=== PATIENT | male | born 1965 | race Caucasian/White ===

== ENCOUNTER 2019-06-29 09:29 | Emergency (ER) | payer OTHER, SELFPAY ==
[2019-06-29 09:40] VITALS: BP 141/90; PULSE 83; RESP 16; TEMP 36.7; O2SAT 99
--- NOTE | 2019-06-29 10:24 | ED.URI ---
HPI - URI/Sore Throat General Chief Complaint: Upper Respiratory Infection Stated Complaint: Sinus Infection Time Seen by Provider: 06/29/19 10:24 History of Present Illness HPI Narrative: Michelet Cardenas is a 53 yo male with a PMH of diabetes who comes to the urgent care for sinus pressure and congestion. He states that he has had upper respiratory symptoms for 5 days and has been taking Mucinex which is caused his blood pressure to be increased. His blood sugar is also been elevated over the last few days. States his temperature was as high as 102 but that broke on Tuesday but has not been unable to manage the sinus pressure states is his ears ringing at times Related Data Home Medications Medication Instructions Recorded Confirmed Mucinex 06/29/19 insulin glargine [Basaglar KwikPen unit SUBCUT 06/29/19 U-100 Insulin] metformin mg PO 06/29/19 sitagliptin [Januvia] mg 06/29/19 Allergies Allergy/AdvReac Type Severity Reaction Status Date / Time No Known Allergies Allergy Mild Verified 04/02/19 10:06 Review of Systems Review of Systems: Narrative: CONSTITUTIONAL: Denies fever, chills, sweats. EYES: Denies visual changes, redness, discharge. ENT: Denies rhinorrhea, has sinus congestion, no sore throat, otalgia. CARDIOVASCULAR: Denies chest pain, palpitations, edema. RESPIRATORY: Denies dyspnea, wheezing, cough GASTROINTESTINAL: Denies abdominal pain, nausea, vomiting, diarrhea. GENITOURINARY: Denies dysuria, hematuria, abnormal discharge SKIN: Denies rash or itching. MUSCULOSKELETAL: Denies acute back pain, joint pain, or myalgia. NEUROLOGIC: Denies numbness, or focal weakness. PSYCHIATRIC: Denies anxiety or depression. [facility] Family History Family History Father Hypertension Cerebrovascular accident Mother Asthma Sibling Patient's brother is in good health Other Carcinoma of colon Diabetes mellitus Family history of cardiovascular disease Family history of malignant neoplasm Family history of malignant neoplasm of skin Social History Social History Smoking status: Former smoker Smoking end date: 05/23/05 Alcohol intake: never Comments At time of signature, I agree with nursing past medical, surgical, social and family history. There is no relevant family history pertinent to the presenting complaint. Exam Narrative: Exam Narrative: GENERAL: This is a well-nourished, well-developed patient, in no apparent distress. HEAD: normocephalic, atraumatic. EYES: PERRL. Sclera clear/white. Vision is grossly intact. EARS: External ears normal, auditory canals clear and without drainage, TMs normal without perforation. Hearing grossly intact. NOSE: External nose normal with no obvious nasal discharge, nares without redness, no rhinorrhea. Tender maxillary sinuses THROAT: Mucous membranes moist, posterior pharynx erythema. NECK: Neck supple, non-tender without lymphadenopathy, masses or thyromegaly. CARDIOVASCULAR: Regular rate and rhythm without murmurs, gallops, or rubs. RESPIRATORY: Clear to auscultation. Breath sounds equal bilaterally. No wheezes, rales, or rhonchi. GASTROINTESTINAL: Abdomen soft, non-tender, nondistended. Bowel sounds are active. No hepato-splenomegaly, or palpable masses. No guarding. SKIN: warm, intact with no suspicious lesions or rash, good texture and turgor. NEURO: awake, alert, and oriented to person, place and time. There were no obvious focal neurologic abnormalities. Steady gait EXTREMITIES: Normal range of motion. BACK: Nontender without deformity or crepitance. No flank tenderness. Course Course Emergency Course: Had discussion with patient regarding medication and blood sugar interactions blood sugar currently running about 175; aware the Mucinex he is taking has also increased his blood pressure. Follows up with PCP regularly Agreed to start on A
== END 2019-06-29 10:43 | disposition home or self-care (01) ==
PROVIDERS: Emergency Provider Nurse Practitioner; PCP Family Medicine
DX: J01.10 Acute frontal sinusitis, unspecified (principal); Z87.891 Personal history of nicotine dependence
CPT/HCPCS: 99213; G0463

== ENCOUNTER 2020-12-10 10:01 | Outpatient (CLI) | payer OTHER, SELFPAY ==
--- NOTE | 2020-12-10 11:00 | NEURO_ITS ---
Impression: # Complains of right 4th and 5th finger numbness. # Right ulnar neuropathy across the elbow. # No Carpal Tunnel Syndrome. # Normal needle/EMG exam. Nerve Conduction Studies Anti Sensory Summary Table Stim Site NR Peak (ms) P-T Amp (?V) Site1 Site2 Delta-P (ms) Dist (cm) Kavin (m/s) Right Median Anti Sensory (2-3nd Digit) Wrist 3.2 52.8 Wrist 2-3nd Digit 3.2 14.0 44 Wrist 3.1 36.5 Wrist 2-3nd Digit 3.2 14.0 44 Right Radial Anti Sensory (Base 1st Digit) Wrist 2.4 16.7 Wrist Base 1st Digit 2.4 0.0 Right Ulnar Anti Sensory (5th Digit) Wrist 3.1 63.1 Wrist 5th Digit 3.1 14.0 45 Motor Summary Table Stim Site NR Onset (ms) O-P Amp (mV) Site1 Site2 Delta-0 (ms) Dist (cm) Kavin (m/s) Right Median Motor (Abd Poll Brev) Wrist 3.5 2.9 Elbow Wrist 5.2 28.0 54 Elbow 8.7 2.7 Right Ulnar Motor (Abd Dig Minimi) Wrist 3.7 7.3 A Elbow Wrist 5.7 28.0 49 A Elbow 9.4 5.7 B Elbow Wrist 3.6 19.0 53 B Elbow 7.3 2.7 F Wave Studies NR F-Lat (ms) L-R F-Lat (ms) Right Median (Mrkrs) (Abd Poll Brev) 29.28 Right Ulnar (Mrkrs) (Abd Dig Min) 30.64 EMG Side Muscle Nerve Root Ins Act Fibs Amp Dur Recrt Comment Right 1stDorInt Ulnar C8-T1 Nml Nml Nml Nml Nml Right Ext Indicis Radial (Post Int) C7-8 Nml Nml Nml Nml Nml Right Ext Digitorum Radial (Post Int) C7-8 Nml Nml Nml Nml Nml Right BrachioRad Radial C5-6 Nml Nml Nml Nml Nml Right PronatorTeres Median C6-7 Nml Nml Nml Nml Nml Right Abd Poll Brev Median C8-T1 Nml Nml Nml Nml Nml Right ABD Dig Min Ulnar C8-T1 Nml Nml Nml Nml Nml MTDD
== END 2020-12-10 10:02 | disposition home or self-care (01) ==
PROVIDERS: PCP Family Medicine; Visit Provider Family Medicine
DX: R20.2 Paresthesia of skin (principal); M79.641 Pain in right hand; G56.21 Lesion of ulnar nerve, right upper limb
CPT/HCPCS: 95886; 95909

== ENCOUNTER → 2021-01-03 10:02 | Outpatient (CLI) | payer OTHER, SELFPAY ==
--- NOTE | ~2021-01-03 | US_ITS ---
US scrotum doppler INDICATION: No hypogonadism. Low testosterone. TECHNIQUE: Testicular sonogram utilizing grayscale and color Doppler FINDINGS: There are multiple small cysts of the left testicle. There are a few testicular microcalcif ications. There are left epididymal cysts measuring up to 11 mm. Right epididymis within normal limit s. No evidence for hydrocele. No varicocele. No focal lesions are seen. The right testes measures 4.5 x 2.1 x 2.9 cm centimeters, and the left testis measures 4.3 x 1.9 x 2.4 cm cm. There is normal vasc ular flow to both testes. Left testicle appears slightly higher than the right testicle. Correlate cl inically. The right and left epididymides appear normal. There is no varicocele or hydrocele. IMPRESSION: 1. Left testicular and epididymal cysts. Reviewed, dictated and finalized at location A.
== END ==
PROVIDERS: Visit Provider Internal Medicine Endocrinology, Diabetes & Metabolism
DX: R79.89 Other specified abnormal findings of blood chemistry (principal); N50.3 Cyst of epididymis; N44.2 Benign cyst of testis
CPT/HCPCS: 76870; 93976

== ENCOUNTER 2021-04-21 15:49 | Outpatient (CLI) | payer OTHER, SELFPAY ==
--- NOTE | ~2021-04-21 | MR_ITS ---
EXAMINATION: MR cervical spine wo con EXAM DATE: 04/21/2021 16:35 INDICATION: M54.12 - Radiculopathy, cervical region. TECHNIQUE: Multi-sequential, multiplanar MR images of the cervical spine were obtained without contra st. Axial T2, axial T2 MERGE sequence. Sagittal T1, T2, T2 fat saturation images also obtained. Th ere is no prior study for comparison. FINDINGS: Moderate to severe disc disease at C5-6. The vertebral body and disc heights are otherwise well maintained. The vertebral bodies are aligned in the AP dimension. The spinal cord signal intens ity and intrinsic morphology is normal. Cervicomedullary junction is normal in appearance. There are no suspicious marrow signal abnormalities. Paraspinal soft tissue is unremarkable. Level by level evaluation: C2-C3: Disc does not extend beyond the endplate margin. Uncovertebral joint arthropathy: Mild left. Facet joint arthropathy: Mild bilateral. Neural foraminal stenosis: No stenosis. Central canal stenosis: No stenosis. C3-C4: There is a minimal diffuse disc bulge. Uncovertebral joint arthropathy: Mild bilateral. Facet joint arthropathy: Mild bilateral. Neural foraminal stenosis: No stenosis. Central canal stenosis: No stenosis. C4-C5: There is a minimal diffuse disc bulge. Uncovertebral joint arthropathy: Mild bilateral. Facet joint arthropathy: Mild to moderate bilateral. Neural foraminal stenosis: Minimal left. Central canal stenosis: No stenosis. C5-C6: [id number] Uncovertebral joint arthropathy: Mild to moderate bilateral. Facet joint arthropathy: Mild to moderate bilateral. Neural foraminal stenosis: Mild to moderate left, mild right. Central canal stenosis: Mild to moderate. Central canal measures 7 mm in mid sagittal AP diameter . C6-C7: There is a mild diffuse disc bulge. Uncovertebral joint arthropathy: Moderate right, mild left. Facet joint arthropathy: Mild to moderate bilateral. Neural foraminal stenosis: Mild to moderate right. Central canal stenosis: Mild. C7-T1: Disc does not extend beyond the endplate margin. Uncovertebral joint arthropathy: Mild bilateral. Facet joint arthropathy: Mild to moderate bilateral. Neural foraminal stenosis: No stenosis. Central canal stenosis: No stenosis. IMPRESSION: 1. Advanced C5-6 disc disease, mild to moderate left neural foraminal stenosis. 2. Less spondylosis other levels. Reviewed, dictated and finalized at location A. ENT FLOW COORDINATOR IMPRESSION: 1. Advanced C5-6 disc disease, mild to moderate left neural foraminal stenosis . 2. Less spondylosis other levels.
== END 2021-04-21 15:50 | disposition home or self-care (01) ==
PROVIDERS: PCP Family Medicine; Visit Provider Orthopaedic Surgery
DX: M47.813 Spondylosis without myelopathy or radiculopathy, cervicothoracic region (principal); M48.03 Spinal stenosis, cervicothoracic region
CPT/HCPCS: 72141

== ENCOUNTER 2021-07-30 12:05 | Outpatient (CLI) | payer OTHER, SELFPAY ==
--- NOTE | 2021-07-30 15:24 | ECG_ITS ---
Measurements Intervals [place] Rate: 95 P: 26 [place]: 143 QRS: 22 QRSD: 81 T: 30 QT: 321 QTc: 404 Interpretive Statements SINUS RHYTHM BASELINE ARTIFACT OTHERWISE NORMAL ECG NO PREVIOUS ECG AVAILABLE FOR COMPARISON Electronically Signed On 07-30-2021 16:20:29 MARINE STEAM FITTER HELPER by Terry Lunsford M.D.
[2021-07-30 15:48] LABS: Anion Gap 8 mmol/L (8-16); Blood Urea Nitrogen 18 mg/dL (9-20); Calcium 9.3 mg/dL (8.4-10.2); Carbon Dioxide 31 mmol/L (22-30); Chloride 100 mmol/L (98-107); Estimated Glomerular Filt Rate > 60; Glucose 146 mg/dL (65-110); Potassium 4.2 mmol/L (3.4-5.0); Sodium 139 mmol/L (137-145)
== END 2021-07-30 12:06 | disposition home or self-care (01) ==
PROVIDERS: Anesthesiology; PCP Family Medicine; Visit Provider Orthopaedic Surgery
DX: Z01.818 Encounter for other preprocedural examination (principal); E11.9 Type 2 diabetes mellitus without complications; I10 Essential (primary) hypertension
CPT/HCPCS: 36415; 80048; 93005

== ENCOUNTER → 2021-08-01 00:17 | Outpatient (CLI) | payer OTHER, SELFPAY ==
[2021-08-01 13:14] LABS: SARS-CoV-2 RNA PCR Negative
== END ==
PROVIDERS: PCP Family Medicine; Visit Provider Orthopaedic Surgery
DX: Z01.812 Encounter for preprocedural laboratory examination (principal); Z20.822 Contact with and (suspected) exposure to COVID-19
CPT/HCPCS: C9803; U0003; U0005

== ENCOUNTER 2021-08-04 00:59 | Day surgery (SDC) | payer OTHER, SELFPAY ==
[2021-07-27 15:22] VITALS: BMI 33.0
--- NOTE | 2021-07-27 15:26 | PC.NURSE ---
Report to the Outpatient Waiting Room, entrance under the green pavilion located off [facility], at time 11:30 on date 08/04/21. OR Time: 13:30. - You and your visitor will be asked a series of questions to screen for COVID 19 for your protection. - A mask is required within the hospital. Preoperative COVID Testing Requirements: No COVID Test needed if: (proof is required; if not received patient will have Rapid Test prior to entry) - Patient has received COVID Vaccine at least 14 days prior to procedure date or - Patient has positive COVID test result within last 90 days of surgery date. COVID Test needed if above criteria is not met If not COVID vaccinated a COVID test must be conducted within 72 hours of surgery and patient is asked to isolate self from time of testing until procedure. You will go to the [employer] [facility] Testing Site for your COVID testing. The [employer] [facility] is located at the corner of [address] [facility]. You will only be called if COVID results are positive and your surgeon may reschedule your elective surgery date. Patients may have clear liquids (water, carbonated beverages, clear teas, apple juice) until 3 hours prior to surgery with a maximum of 20 ounces. - No food from midnight until time of surgery - Infants may have breast milk until 4 hours before surgery, infant formula 6 hours prior to surgery. - Children will be allowed to drink immediately following surgery. If applicable, please bring a bottle or sippy cup to assist with drinking. Juice, water, soda, and popsicles are readily available. For infants on formula, please bring formula the day of surgery. Pacifiers are allowed. Take the following medications with a SIP of water the morning of surgery: No home meds Medications to discontinue per physician _vitamins or supplements 3 days prior (08/01/21). Date to take last dose Please no make-up, nail grenadian, hairspray, perfume, deodorant, or body powder the day of surgery. No jewelry (including any body piercings) or valuables the day of surgery, leave them at home. Please take a shower or bath the night before, or the morning of, surgery with an antibacterial soap. Wear comfortable, loose fitting clothing. Children are encouraged to wear pajamas. - Jewelry must be removed prior to entering the operating room. Rings and piercings that are not removed may be cut off. - The hospital will not accept responsibility for valuables. - Please leave all valuables, including medications, at home the day of surgery. If you are going home after surgery, a licensed putaway driver must drive you home. - NO public transportation without another adult. - We recommend that an adult stay with you for 24 hours following discharge. - We also recommend that you do not drive, make important decision, drink alcoholic beverages, or take any drugs that were not prescribed by your health care provider for at least 24 hours after your discharge time. For Pediatric surgeries, we recommend two adults accompany the child home (only one inside the building at this time). One visitor will be allowed to accompany the patient into the hospital. Patients visitor will be instructed to remain with patient at all times or leave the building. We will allow the visitor to come back to the postoperative area when patient is ready. Follow any additional instructions given to you from your surgeon. Telephone instructions given to patient and asked if any additional questions and then verbalized understanding. Patient advised to call surgeon office or pre surgery nurse liaison [phone] if any additional questions.
--- NOTE | 2021-08-04 07:28 | WPDHPUPDATE1 ---
History and Physical Update Update Date/Time: 08/04/21 07:28 History and Physical has been reviewed, including an updated exam of the patient. There are NO changes in the patient's condition. Risks, benefits, and alternatives have been discussed and questions answered. Patient agrees to proceed with procedure.
--- NOTE | 2021-08-04 09:56 | WPDANESEPPF ---
Anes - Initial Pre Proc Eval Procedure: Operation Date: 08/04/21 13:30 Proposed Procedures p Right Open Carpal and Cubital Tunnel Release - Kaushal Montes MD Date/Time: 08/04/21 09:56 Surgeon: Kaushal Montes MD Pre Op Diagnosis: right carpal and cubital tunnel syndrome Patient Data Age: 55 Gender: M Height: 1.78 m Weight: 104.33 kg Allergies Allergy/AdvReac Type Severity Reaction Status Date / Time No Known Allergies Allergy Mild Verified 08/04/21 11:46 Home Medications Medication Instructions Recorded Confirmed Type dapagliflozin 10 mg tablet 10 mg PO DAILY #90 tablet 07/11/19 07/27/21 Rx atorvastatin 20 mg tablet 20 mg PO DAILY 03/18/20 07/27/21 History glimepiride 2 mg tablet 2 mg PO QAM 03/18/20 07/27/21 History insulin degludec 100 unit/mL (3 48 unit SUBCUT DAILY ml 03/18/20 07/27/21 History mL) subcutaneous pen lisinopril 20 mg tablet 20 mg PO DAILY 03/18/20 07/27/21 History testosterone enanthate 75 mg/0.5 75 mg SUBCUT WEEKLY 03/16/21 07/27/21 History mL subcutaneous auto-injector metformin 500 mg tablet,extended See Rx Instructions .ROUTE 03/30/21 07/27/21 Rx release 24 hr .COMPLEX #360 tablet pen needle, diabetic 32 gauge x #100 each 04/20/21 07/27/21 Rx /32 dulaglutide 1.5 mg SUBCUT WEEKLY 07/27/21 08/04/21 History Patient hx anesthesia problems: none Family hx anesthesia problems: none Results Review: All pre-operative results and documents have been reviewed as part of the pre-operative evaluation. [facility] Past Medical History Medical History (Updated 08/04/21 @ 09:56 by Gary Regan DO) Carpal tunnel syndrome, right Diabetes HLD (hyperlipidemia) HTN (hypertension) Surgical History Surgical History History of removal of cyst (~1990) Family History Family History Father Hypertension Cerebrovascular accident Mother Asthma Sibling Patient's brother is in good health Other Carcinoma of colon Diabetes mellitus Family history of cardiovascular disease Family history of malignant neoplasm Family history of malignant neoplasm of skin Social History Social History Smoking packs per day: 1.5 Smoking cigarettes per day: 30.0 Years smoked: 20 Smoking pack-years: 30.00 Smoking status: Former smoker Tobacco type: cigarettes Second hand tobacco smoke exposure: Yes Smoking end date: 04/09/06 Alcohol intake: never Substance use: never Substance use type: does not use Living arrangements: with family Gender identity (if verbalized by the patient): Male Spiritual care concerns: No Anes - Eval Final PreProcedure Day of Procedure 08/04/21 09:56 Patient weight: obese Heart: regular rate and rhythm Lungs: clear to auscultation and normal air movement Airway: Mallampati scale class II Neurological: alert and oriented Last oral intake: >/= 8 hours ASA classification: III Emergent: no Anesthetic plan: proceed Anesthesia type and monitoring: general LMA and standard monitoring Results Review: All pre-operative results and documents have been reviewed as part of the pre-operative evaluation. Informed Consent: The patient's anesthetic plan and its attendant risks and benefits were discussed with the patient/family/POA. Questions were solicited and answers provided to the satisfaction of the patient/family/POA.
[2021-08-04] MEDS: LACTATED RINGERS 1,000 ML 30 ML IV CONT ×2 (12:00→15:46)
[2021-08-04 12:04] LABS: Glucose Point of Care 105 mg/dl (65-105)
[2021-08-04] MEDS: ACETAMINOPHEN 500 MG TABLET 1000 MG PO (12:20)
[2021-08-04 12:23] VITALS: BP 128/81; PULSE 102; RESP 16; TEMP 36.7; O2SAT 99
[2021-08-04] MEDS: KETOROLAC 15 MG/ML VIAL (*BKC) IV PUSH (12:45)
[2021-08-04] MEDS: ceFAZolin SODIUM 1 GM VIAL 2 GM IV PUSH (14:41)
[2021-08-04] MEDS: BUPIVACAINE/EPINEPHRINE 0.25% 50 ML VIAL 20 ML INFILTRATE (14:49)
[2021-08-04 15:46] VITALS: BP 127/76; PULSE 93; RESP 14; TEMP 36.2; O2SAT 96
[2021-08-04 16:00] VITALS: BP 124/69; PULSE 90; RESP 12; O2SAT 92
[2021-08-04 16:00] LABS: Glucose Point of Care 52 mg/dl (65-105)
--- NOTE | 2021-08-04 16:05 | SUR.PHASEI ---
1555 Called and discussed low blood sugar with Dr Tiwari. 8 oz apple juice given to patient which he drank easily.
[2021-08-04 16:18] VITALS: BP 112/54; PULSE 89; RESP 14; O2SAT 92
[2021-08-04 16:30] VITALS: BP 140/75; PULSE 88
--- NOTE | 2021-08-04 16:51 | SUR.PHASEII ---
RN tried to recheck patient's blood sugar after 8oz of apple juice consumed but patient refused. He said he felt much better and like it was rising.
[2021-08-04 17:00] VITALS: BP 128/70; PULSE 86
--- NOTE | 2021-08-04 17:18 | SUR.PHASEII ---
Patient requested no pain medicine per KAYE Zamarripa.
--- NOTE | 2021-08-04 17:35 | P.OP_ITS ---
Procedure Note - Detailed Date of Procedure 08/04/21 Pre-op Diagnosis Right carpal and cubital tunnel syndrome Post-op Diagnosis Same Procedure Performed Right 1. Carpal tunnel release 2. Cubital tunnel decompression Surgeon Kaushal Montes MD Occupational Therapy Supervisor Karlie Espitia PA-C Anesthesia General Description of Procedure Operative details. After sedation was administer, the hand was prepped and draped in the usual sterile fashion. The proposed incision was marked using typical anatomic landmarks. 4ML 0.5% Marcaine with epinephrine was injected along the incision line and at the distal forearm. The limb was exsanguinated and the tourniquet inflated to 250 millimeters of mercury. A longitudinal incision was taken sharply. Dissection was brought down to the transverse carpal ligament. Under direct vision the ligament was incised sharply. The proximal release was carried out with dissection scissors. The contents of the carpal canal were protected with a [place] elevator. The transverse carpal ligament was confirmed to be widely patent. Attention was turned to the elbow. A longitudinal incision was created posterior to the medial epicondyle. Careful dissection was brought down to the ulnar nerve. It was identified proximally and dissected to the cubital tunnel retinaculum. Careful dissection released the cubital tunnel retinaculum. The dissection was carried out to the flexor carpi the palmaris. The 1st motor branch was carefully identified and protected. Attention was turned proximally, and the nerve was released proximal to the intermuscular septum. The arm was flexed and the nerve was assessed. The nerve was stable. The course of the nerve showed no compression or instability. The tourniquet was released to assure that there was no significant bleeding. Meticulous hemostasis was maintained. The subcutaneous tissues were closed with interrupted 3-0 Monocryl suture followed by running 4-0 Monocryl suture and Steri-Strips. A sterile dressing was applied with a soft splint at the wrist and a hard splint at the elbow. The patient was extubated and brought to the recovery room in stable condition. Estimated Blood Loss -5.0 Pathology None sent Complications No immediate complications Condition Stable Disposition PACU
== END 2021-08-04 17:10 | disposition home or self-care (01) ==
PROVIDERS: PCP Family Medicine; Visit Provider Orthopaedic Surgery
PROC: (CPT 64721; principal; 2021-08-04 13:30)
DX: G56.01 Carpal tunnel syndrome, right upper limb (principal); G56.21 Lesion of ulnar nerve, right upper limb; E11.9 Type 2 diabetes mellitus without complications; I10 Essential (primary) hypertension; E78.5 Hyperlipidemia, unspecified; Z87.891 Personal history of nicotine dependence; E66.9 Obesity, unspecified; Z68.33 Body mass index [BMI] 33.0-33.9, adult; Z79.84 Long term (current) use of oral hypoglycemic drugs; Z79.4 Long term (current) use of insulin; Z79.899 Other long term (current) drug therapy
CPT/HCPCS: 64721; 64718; 82948; A9270; J0690; J1100; J1885; J2250; J2405; J2704; J3010; J7120

== ENCOUNTER 2025-03-07 12:15 | Outpatient (CLI) | payer OTHER, SELFPAY ==
--- NOTE | ~2025-03-07 | US_ITS ---
EXAMINATION: US scrotum doppler DATE: 03/07/2025 13:30 INDICATION: Other specified disorders of female genital organs. TECHNIQUE: Testicular sonogram utilizing grayscale and Doppler COMPARISON: None. FINDINGS: The right testis measures 4.5 x 2.5 x 1.8 cm. The left testis measures 3.8 x 2.7 x 2.0 cm. Normal grayscale appearance to the right testis. There is asymmetric relative enlargement of the cephalad aspect of the left testis which contains an approximately 2.1 x 1.7 x 1.6 cm masslike region with heterogeneous central predominant decreased echogenicity but without clearly defined margins the region from the remainder of the testis. There is increased vascular flow within this region of the testis relative to the remainder of the left testis and the contralateral right testis. There are bilateral anechoic epididymal cysts measuring up to 3 to 4 mm on the right and 13 mm and 7 mm on the left. There is an approximately 13 x 8 mm abdomen 9 x 6 mm masslike regions at the tail of the left epididymis which are in relatively close proximity to the somewhat elongated and thinned inferior pole of the left testis which demonstrates similar echogenicity and echotexture. Mild bilateral and varicocele s with vessels measuring up to 3 mm on both the left and right. No hydrocele. IMPRESSION: 1. Abnormal appearance and morphology of the left testis with ill-defined masslike region with mild increased vascular flow at the upper pole of the testis with elongated relatively thinned appearance to the inferior left testis which appears chronic. Differential includes focal orchitis or malignancy. If focal orchitis is suspected clinically would recommend follow-up ultrasound to document resolution. 2. Couple small nodular regions at the tail of the left epididymis which demonstrates similar echogenicity and echotexture as the left testis with which could be due to focal epididymitis or neoplasm. Given the irregular morphology with the elongated narrowed appearance to the lower pole the left testis and is similar echogenicity and echotexture, this could also represent displaced testicular tissue as sequela of chronic trauma. Correlate with clinical history. 3. Mild bilateral varicoceles. Reviewed, dictated and finalized at location A. IMPRESSION: 1. Abnormal appearance and morphology of the left testis with ill-defined mass like region with mild increased vascular flow at the upper pole of the testis w ith elongated relatively thinned appearance to the inferior left testis which a ppears chronic. Differential includes focal orchitis or malignancy. If focal or chitis is suspected clinically would recommend follow-up ultrasound to document resolution. 2. Couple small nodular regions at the tail of the left epididymis which demons trates similar echogenicity and echotexture as the left testis with which could be due to focal epididymitis or neoplasm. Given the irregular morphology with the elongated narrowed appearance to the lower pole the left testis and is destiny lar echogenicity and echotexture, this could also represent displaced testicula r tissue as sequela of chronic trauma. Correlate with clinical history. 3. Mild bilateral varicoceles.
== END 2025-03-07 12:16 | disposition home or self-care (01) ==
PROVIDERS: PCP Family Medicine; Visit Provider Physician Assistant
DX: N50.89 Other specified disorders of the male genital organs (principal)
CPT/HCPCS: 76870; 93976

== ENCOUNTER 2025-03-07 15:47 | Observation (INO) | payer OTHER, SELFPAY ==
--- OUTSIDE RECORDS SUMMARY | 2017-10-03 11:30 | XMS_ITS | Continuity of Care Document ---
Author Organization [facility] Address [address] [place] [address] [address] [place] [address] Phone Care Team Providers Care Armature Winder Repairer Name Role Phone Muehl MPT CMPT, Angel Unavailable Unavailable Procedures Procedure Date Therapeutic Exercise Therapeutic Activities Neuromuscular Re-Ed Manual Therapy Hot or Cold Pack PT Re-evaluation Therapeutic Exercise Therapeutic Activities Neuromuscular Re-Ed Manual Therapy Hot or Cold Pack Therapeutic Exercise Therapeutic Activities Neuromuscular Re-Ed Manual Therapy Hot or Cold Pack Therapeutic Exercise Therapeutic Activities Neuromuscular Re-Ed Manual Therapy Hot or Cold Pack Therapeutic Exercise Therapeutic Activities Neuromuscular Re-Ed Manual Therapy Therapeutic Exercise Therapeutic Activities Neuromuscular Re-Ed Manual Therapy Hot or Cold Pack Therapeutic Exercise Therapeutic Activities Neuromuscular Re-Ed Manual Therapy Hot or Cold Pack Therapeutic Exercise Therapeutic Activities Manual Therapy Hot or Cold Pack Therapeutic Exercise Manual Therapy Hot or Cold Pack Electrical Stimulation PT Evaluation Moderate Complexity Therapeutic Exercise Advance Directives Directive Yes / No Effective Date File Name No Information Encounters Encounter Description Practice Location Reason(s) For Visit Diagnoses Date Provider Providers Copied on Encounter [facility], [place], [place], [id number], tel:[phone] [place] Pain in right shoulderOther specified disorders of bone, shoulderStiffnes s of right shoulder, not elsewhere classifiedMuscle weakness (generalized)Tor ticollis 4-201 8 Muehl Angel. [address] [facility], [facility] [address], [place], [place], [facility], . tel: [phone] [facility] [address], [place], [place], [id number], tel:[phone] [place] Pain in right shoulderOther specified disorders of bone, shoulderStiffnes s of right shoulder, not elsewhere classifiedMuscle weakness (generalized)Tor ticollis 9-201 8 Muehl Angel. [address] [facility], [facility] [address], [place], [place], [facility], . tel: [phone] [facility], [place], [place], [id number], tel:[phone] [place] Pain in right shoulderOther specified disorders of bone, shoulderStiffnes s of right shoulder, not elsewhere classifiedMuscle weakness (generalized)Tor ticollis 7-201 8 Muehl Angel. [address] [facility], [facility], [place], [place], [facility], . tel: [phone] [facility], [place], [place], [id number], tel:[phone] [place] Pain in right shoulderOther specified disorders of bone, shoulderStiffnes s of right shoulder, not elsewhere classifiedMuscle weakness (generalized)Tor ticollis 2-201 8 Muehl Angel. [address] [facility], [address], [place], [place], [facility], . tel: [phone] [facility], [place], [place], [id number], [place] tel:[phone] [place] Pain in right shoulderOther specified disorders of bone, shoulderStiffnes s of right shoulder, not elsewhere classifiedMuscle weakness (generalized)Tor ticollis Apr-3 0-201 8 Muehl Angel. [address] [facility], [address], [place], [address], [place]. tel: [phone] [facility], [place], [place], [id number], [place] tel:[phone] [place] Pain in right shoulderOther specified disorders of bone, shoulderStiffnes s of right shoulder, not elsewhere classifiedMuscle weakness (generalized)Tor ticollis Apr-2 7-201 8 Muehl Angel. [address] [facility], [address], [place], [address], [place]. tel: [phone] [facility] [address], [place], [place], [id number], [place] tel:[phone] [place] Pain in right shoulderOther specified disorders of bone, shoulderStiffnes s of right shoulder, not elsewhere classifiedMuscle weakness (generalized)Tor ticollis Apr-2 5-201 8 Muehl Angel. [address] [facility], [address], [place], [address], [place]. tel: [phone] [facility], [place], [place], [id number], [place] tel:[phone] [place] Pain in right shoulderOther specified disorders of bone, shoulderStiffnes s of right shoulder, not elsewhere classifiedMuscle weakness (generalized)Tor ticollis Apr-2 3-201 8 Muehl Angel. [address] [facility], [address], [place], [address], [place]. tel: [phone] [facility], [place], [place], [id number], [place] tel:[phone] [place] Pain in right shoulderOther specified disorders of bone, shoulderStiffnes s of right shoulder, not elsewhere classifiedMuscle weakness (generalized)Tor ticollis Apr-1 8-201 8 Lucy Ortiz. [address] [facility], [address], [place], [address], [place]. tel:[phone] Referring Provider: Onofre Martin [address] [facility] [address], [place], [address]. tel:[phone] [facility], [address] [facility] [address], [place], [place], [id number], [place] tel:[phone] [place] Pain in right shoulderOther specified disorders of bone, shoulderStiffnes s of right shoulder, not elsewhere classifiedMuscle weakness (generalized)Carlos conroy 8 Lucy Ortiz. [address] [facility], [address], [place], [address], [place]. [phone] Referring Provider: Onofre Martin [address], [place], [address]. tel:[phone] Family History Family Member Type Diagnosis Age At Onset No Information Payers Payer name Insurance type Covered democrat ID Authoriza tion(s) No Information Social History Type Description Quantity Date Captured Comments Sex Male Smoking Status No Information Chief Complaint And Reason For Visit No Information Reason For Referral Reason For Referral No Information History Of Present Illness Encounter Date Complaint History Of Prese nt Illness No Information Functional Status Date Functional Assessmen t No Information Instructions Date Instruction Additional Infor mation No Information Assessments Type Assessment Date No Information Patient Care Teams Name Effective Dates (start - stop) Status Members No Information
[2025-03-07] VITALS (22 sets, daily range): BP systolic 127–157; BP diastolic 67–93; PULSE 80–95; RESP 11–19; TEMP 36.4; O2SAT 94–100
--- NOTE | ~2025-03-07 | CT_ITS ---
CT pelvis w con INDICATION:SCROTAL MASS, please scan thru entire scrotum . COMPARISON: None. TECHNIQUE: Axial images of the pelvis were obtained following oral Gastrografin as well as infusion of 100 mL Isovue 300. FINDINGS: There are enhancing left testicular lesion measuring up to 12 mm. The bladder and rectum are normal. No free intraperitoneal fluid or air is evident. There is no significant retroperitoneal lymphadenopathy. The aorta, visceral vessels and renal arteries demonstrate normal caliber and patency. The lower thoracic and lumbar vertebrae are in normal alignment. IMPRESSION: 12 mm enhancing left testicular lesion. There is a 2.4 x 1.6 cm walled off fluid collection in at the base of the scrotum. All CT scans at this facility are performed using low dose modulation techniques as appropriate to perform exam including the following: automated exposure control; use of iterative reconstruction technique; adjustment of the mA and/or kV according to patient size (this includes techniques or standardized protocols for targeted exams where dose is matched to indication/reason for exam). Reviewed, dictated and finalized at location S. IMPRESSION: 12 mm enhancing left testicular lesion. There is a 2.4 x 1.6 cm walled off flui d collection in at the base of the scrotum. All CT scans at this facility are performed using low dose modulation techniqu es as appropriate to perform exam including the following: automated exposure c ontrol; use of iterative reconstruction technique; adjustment of the mA and/or kV according to patient size (this includes techniques or standardized protocol s for targeted exams where dose is matched to indication/reason for exam).
--- NOTE | 2025-03-07 16:58 | ED_ITS ---
HPI - Male Genitourinary General Chief complaint: Skin/Abscess/Foreign Body <Lorelei Sood PA-C - Last Filed: 03/08/25 17:16> Stated complaint: PCP called & told him to come for scrotal cyst? <Lorelei Sood PA-C - Last Filed: 03/08/25 17:16> Time Seen by Provider: 03/07/25 16:58 <Lorelei Sood PA-C - Last Filed: 03/08/25 17:16> Focused HPI: This is a 59 year old male that presents to the ER for swelling around his perineum. Reports the has been ongoing for a week. Reports redness. Denies fevers, drainage. GENERAL: Well-appearing, well-nourished, and in no acute distress. HEAD: Normocephalic, atraumatic. CHEST: Clear to auscultation. ?No respiratory distress. HEART: Regular rate and rhythm.? NEURO: ?Alert and oriented x3. Patient screened in triage and initial orders placed.? ?Additional care and disposition to be based upon?diagnostic testing and treatment. <Lorelei Sood PA-C - Last Filed: 03/08/25 17:16> History of Present Illness HPI Narrative: Agree with the HPI above. No systemic symptoms besides pain. Denies any fever, chills, weight loss, weight gain. His well-controlled insulin-dependent diabetic type 2. <Vitaliy Mann MD - Last Filed: 03/08/25 06:27> Related Data Allergies/Adverse reactions: Allergies Allergy/AdvReac Type Severity Reaction Status Date / Time empagliflozin (From AdvReac Intermediate [place] Verified 03/08/25 10:12 Jardiance) <Lorelei Sood PA-C - Last Filed: 03/08/25 17:16> Review of Systems 2 Review of Systems: As reviewed above in HPI <Vitaliy Mann MD - Last Filed: 03/08/25 06:27> PMFSH Past Medical History Medical History: Medical History Erectile dysfunction Carpal tunnel syndrome, right HLD (hyperlipidemia) HTN (hypertension) Diabetes <Lorelei Sood PA-C - Last Filed: 03/08/25 17:16> Surgical History Surgical History: Surgical History History of decompression of ulnar nerve (~08/04/21) History of carpal tunnel release (~08/04/21) Right CTR History of removal of cyst (~1990) <Lorelei Sood PA-C - Last Filed: 03/08/25 17:16> Family History Family History: Family History Father Hypertension Cerebrovascular accident Mother Asthma Sibling Patient's brother is in good health Other Carcinoma of colon Diabetes mellitus Family history of cardiovascular disease Family history of malignant neoplasm Family history of malignant neoplasm of skin <FRANDY Bueno Last Filed: 03/08/25 17:16> Social History Social History: Social History (Updated 03/08/25 @ 08:49 by Francine Huitron APRN) Social History: He is and lives with his . He did serve in the and was based in [facility] and 1 time. 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 He plans to retire in 8 years. He has 3 children. His is his durable [id number] for healthcare. Code status: Full code Smoking packs per day: 1.5 Smoking cigarettes per day: 30.0 Years smoked: 20 Smoking pack-years: 30.00 Smoking status: Former smoker Tobacco type: cigarettes Second hand tobacco smoke exposure: Yes Smoking end date: 04/09/06 Alcohol intake: former Substance use: never Substance use type: does not use Lack of Transportation: No Lack of Food: Never True Current Housing: I Have Housing Concerned About Future Housing: No Difficulty Paying Gas/Electric Bills: No Difficulty Paying for Meds: No Currently Unemployed: No Education: High School Diploma/GED Difficulty w/ Childcare or Family Care: No Living arrangements: with family Occupation/Education: occupation Gender identity (if verbalized by the patient): Male Spiritual care concerns: No <Lorelei Sood PA-C - Last Filed: 03/08/25 17:16> Exam 2 Narrative: GENERAL: [Well-appearing, well-nourished, and in no acute distress.] HEAD: [Normocephalic, atraumatic.] EYES: [PERRLA and EOMI.] ENT: Nares clear, no rhinorrhea or epistaxis. Mucous membranes moist. NECK: Supple. CHEST: Symmetric chest rise, no respiratory distress HEART: [Regular rate and rhythm]. No murmur heard. [Normal peripheral pulses.] ABDOMEN: [Soft, nondistended], [nontender], [No rigidity or guarding] : Inferior portion of the right selwyn-scrotum near midline [place] has a very indurated 2.5 cm x 2.5 cm circular structure that appears well-circumscribed, warmth and erythema surrounding but no tracking redness crepitus or significant fluctuance. Exquisitely tender to palpation. Testicle itself appears normal morphology without any tenderness in the testicle or epididymis. No inguinal hernias. Penis unremarkable. EXTREMITIES: Normal range of motion. [No edema.] SKIN: Warm, dry, no rash. NEURO: [No focal deficits]. Alert and oriented [x3.] PSYCH: [Normal mood and affect.] <Vitaliy Mann MD - Last Filed: 03/08/25 06:27> Course Vital Signs Vital signs: Vital Signs Temperature 97.6 F 03/07/25 15:55 Pulse Rate 95 03/07/25 15:55 Respiratory Rate 16 03/07/25 15:55 Blood Pressure 157/93 H 03/07/25 15:55 Pulse Oximetry 99 03/07/25 15:55 Oxygen Delivery Room Air 03/07/25 15:55 Temperature 96.1 F L 03/08/25 06:00 Pulse Rate 76 03/08/25 06:00 Respiratory Rate 18 03/08/25 06:00 Blood Pressure 136/83 03/08/25 06:00 Pulse Oximetry 100 03/08/25 06:00 Oxygen Delivery Room Air 03/08/25 00:45 <Lorelei Sood PA-C - Last Filed: 03/08/25 17:16> Vital Signs Temperature 97.6 F 03/07/25 15:55 Pulse Rate 95 03/07/25 15:55 Respiratory Rate 16 03/07/25 15:55 Blood Pressure 157/93 H 03/07/25 15:55 Pulse Oximetry 99 03/07/25 15:55 Oxygen Delivery Room Air 03/07/25 15:55 Temperature 96.1 F L 03/08/25 06:00 Pulse Rate 76 03/08/25 06:00 Respiratory Rate 18 03/08/25 06:00 Blood Pressure 136/83 03/08/25 06:00 Pulse Oximetry 100 03/08/25 06:00 Oxygen Delivery Room Air 03/08/25 00:45 <Vitaliy Mann MD - Last Filed: 03/08/25 06:27> MDM - Male Genitourinary MDM Narrative Medical decision making narrative: 59-year-old male with history of type 2 insulin-dependent diabetes presenting to the emergency department for evaluation of his scrotal mass. He went to his primary care provider's office today and had a scrotal ultrasound done and was sent home with antibiotics for suspected infection. Ultrasound report was read by radiologist and patient was called to the emergency department to get further evaluation with potential urology consult. Ultrasound did not comment on the masslike structure in his scrotum however and patient was informed of his findings that were concerning for potential malignancy versus orchitis. Patient has no urinary complaints or systemic symptoms. No weight loss or B symptoms. Normal vital signs and is afebrile. His examination reveals inferior portion of the right selwyn-scrotum near midline [place] has a very indurated 2.5 cm x 2.5 cm circular structure that appears well-circumscribed, warmth and erythema surrounding but no tracking redness crepitus or significant fluctuance. Exquisitely tender to palpation. Testicle itself appears normal morphology without any tenderness in the testicle or epididymis. No inguinal hernias. Penis unremarkable. Suspect abscess formation to his scrotum. Laboratory studies obtained a CT scan of the pelvis with contrast obtained for further evaluation and compared to the ultrasound report from earlier today. Patient not in any acute pain at this time and declines any additional analgesia. Workup shows no leukocytosis or anemia. CT scan shows abscess in the scrotal wall as well as testicular findings correlate on ultrasound. Spoke to Dr. Nelson from Urology was arrived to the emergency department perform a bedside incision and drainage rather than operative intervention in the OR if patient tolerates this. Patient started on broad-spectrum antibiotics including vancomycin and Zosyn given his insulin-dependent diabetes. Recommended admission to the hospitalist service for observation and additional antibiotics. Patient comfortable with the plan and urology has performed for procedure at bedside. Spoke to the hospitalist mid-level provider who accepted the patient to the hospital at this time. <Lorelei Sood PA-C - Last Filed: 03/08/25 17:16> 59-year-old male with history of type 2 insulin-dependent diabetes presenting to the emergency department for evaluation of his scrotal mass. He went to his primary care provider's office today and had a scrotal ultrasound done and was sent home with antibiotics for suspected infection. Ultrasound report was read by radiologist and patient was called to the emergency department to get further evaluation with potential urology consult. Ultrasound did not comment on the masslike structure in his scrotum however and patient was informed of his findings that were concerning for potential malignancy versus orchitis. Patient has no urinary complaints or systemic symptoms. No weight loss or B symptoms. Normal vital signs and is afebrile. His examination reveals inferior portion of the right selwyn-scrotum near midline [place] has a very indurated 2.5 cm x 2.5 cm circular structure that appears well-circumscribed, warmth and erythema surrounding but no tracking redness crepitus or significant fluctuance. Exquisitely tender to palpation. Testicle itself appears normal morphology without any tenderness in the testicle or epididymis. No inguinal hernias. Penis unremarkable. Suspect abscess formation to his scrotum. Laboratory studies obtained a CT scan of the pelvis with contrast obtained for further evaluation and compared to the ultrasound report from earlier today. Patient not in any acute pain at this time and declines any additional analgesia. Workup shows no leukocytosis or anemia. CT scan shows abscess in the scrotal wall as well as testicular findings correlate on ultrasound. Spoke to Dr. Nelson from Urology was arrived to the emergency department perform a bedside incision and drainage rather than operative intervention in the OR if patient tolerates this. Patient started on broad-spectrum antibiotics including vancomycin and Zosyn given his insulin-dependent diabetes. Recommended admission to the hospitalist service for observation and additional antibiotics. Patient comfortable with the plan and urology has performed for procedure at bedside. S spoke to the hospitalist mid-level provider who accepted the patient to the hospital at this time. <Vitaliy Mann MD - Last Filed: 03/08/25 06:27> Medical Records Attestation: I reviewed the patient's medical records. <Vitaliy Mann MD - Last Filed: 03/08/25 06:27> Lab Data Attestation: I reviewed the patient's lab results. <Vitaliy Mann MD - Last Filed: 03/08/25 06:27> Result diagrams: 03/07/25 18:09 03/08/25 06:13 <Lorelei Sood PA-C - Last Filed: 03/08/25 17:16> Labs: Lab Results 03/07/25 Range/Units 18:09 WBC 9.0 (4.5-10.0) K/mm3 RBC 5.56 (4.6-6.20) M/mm3 Hgb 15.9 (14.0-18.0) g/dL Hct 47.7 (42.0-52.0) % MCV 85.8 (80-100) fl MCH 28.6 (26-34) pg MCHC 33.3 (32-36) g/dl RDW 13.1 (11.5-14.5) % Plt Count 216 (150-375) k/mm3 MPV 9.1 (7.4-10.4) fl Immature Gran % (Auto) 0.3 (0-0.5) % Neut % (Auto) 72.5 (45.5-73.1) % Lymph % (Auto) 17.5 L (18.3-44.2) % [place] % (Auto) 7.5 (2.6-8.5) % Eos % (Auto) 1.6 (0-4.4) % Baso % (Auto) 0.6 (0.2-1.2) % Lymph # (Auto) 1.57 (0.9-3.2) K/mm3 [place] # (Auto) 0.7 H (0.1-0.6) K/mm3 Eos # (Auto) 0.1 (0-0.3) K/mm3 Baso # (Auto) 0.1 (0.0-0.1) K/mm3 Abs Immat Gran (auto) 0.03 (0.00-0.031) K/mm3 Absolute Neuts (auto) 6.5 (1.3-6.7) K/mm3 Absolute Nucleated RBC 0.000 (0.0-0.012) K/mm3 Nucleated RBC % 0.0 (0.0-0.2) % ESR 6 (0-20) mm/hr Sodium 137 (137-145) mmol/L Potassium 4.7 (3.4-5.0) mmol/L Chloride 100 (98-107) mmol/L Carbon Dioxide 27 (22-30) mmol/L Anion Gap 10 (4-12) mmol/L BUN 20 (9-20) mg/dL Creatinine 0.90 (0.7-1.3) mg/dL Estim Creat Clear Calc 82 ml/min Estimated GFR > 60 (59 - ) Glucose 167 H (65-110) mg/dL Hemoglobin A1c 8.0 H (<5.7) % Calcium 9.5 (8.4-10.2) mg/dL Total Bilirubin 1.4 H (0.2-1.3) mg/dL AST 23 (17-59) U/L ALT 18 (6-50) U/L Alkaline Phosphatase 73 (38-126) U/L C-Reactive Protein 0.7 (<1.0) mg/dL Total Protein 7.8 (6.3-8.2) g/dL Albumin 4.5 (3.5-5.1) g/dL Lipase 121 (23-300) U/L Urine Color Yellow (Yellow) Urine Appearance Cloudy H (Clear) Urine pH 5.0 (5.0-9.0) Ur Specific [place] > 1.045 H (1.001-1.035) Urine Protein Negative (Negative) mg/dL Urine Glucose (UA) 3+ H (Negative) mg/dL Urine Ketones Negative (Negative) mg/dL Ur Blood (Man) Negative (Negative) Urine Nitrate Negative (Negative) Urine Bilirubin Negative (Negative) Urine Urobilinogen 0.2 (<2.0) mg/dL Leukocyte Esterase Rfl Negative (Negative) MARIA DEL CARMEN/UL Urine RBC 0-2 (0-2) /hpf Urine WBC 0-5 (0-3) /hpf Ur Squamous Epith Cells None seen (Few) /hpf Urine Bacteria None seen /hpf Urine Casts 0-2 <Lorelei Sood PA-C - Last Filed: 03/08/25 17:16> Lab Results 03/07/25 Range/Units 18:09 WBC 9.0 (4.5-10.0) K/mm3 RBC 5.56 (4.6-6.20) M/mm3 Hgb 15.9 (14.0-18.0) g/dL Hct 47.7 (42.0-52.0) % MCV 85.8 (80-100) fl MCH 28.6 (26-34) pg MCHC 33.3 (32-36) g/dl RDW 13.1 (11.5-14.5) % Plt Count 216 (150-375) k/mm3 MPV 9.1 (7.4-10.4) fl Immature Gran % (Auto) 0.3 (0-0.5) % Neut % (Auto) 72.5 (45.5-73.1) % Lymph % (Auto) 17.5 L (18.3-44.2) % [place] % (Auto) 7.5 (2.6-8.5) % Eos % (Auto) 1.6 (0-4.4) % Baso % (Auto) 0.6 (0.2-1.2) % Lymph # (Auto) 1.57 (0.9-3.2) K/mm3 [place] # (Auto) 0.7 H (0.1-0.6) K/mm3 Eos # (Auto) 0.1 (0-0.3) K/mm3 Baso # (Auto) 0.1 (0.0-0.1) K/mm3 Abs Immat Gran (auto) 0.03 (0.00-0.031) K/mm3 Absolute Neuts (auto) 6.5 (1.3-6.7) K/mm3 Absolute Nucleated RBC 0.000 (0.0-0.012) K/mm3 Nucleated RBC % 0.0 (0.0-0.2) % ESR 6 (0-20) mm/hr Sodium 137 (137-145) mmol/L Potassium 4.7 (3.4-5.0) mmol/L Chloride 100 (98-107) mmol/L Carbon Dioxide 27 (22-30) mmol/L Anion Gap 10 (4-12) mmol/L BUN 20 (9-20) mg/dL Creatinine 0.90 (0.7-1.3) mg/dL Estim Creat Clear Calc 82 ml/min Estimated GFR > 60 (59 - ) Glucose 167 H (65-110) mg/dL Hemoglobin A1c 8.0 H (<5.7) % Calcium 9.5 (8.4-10.2) mg/dL Total Bilirubin 1.4 H (0.2-1.3) mg/dL AST 23 (17-59) U/L ALT 18 (6-50) U/L Alkaline Phosphatase 73 (38-126) U/L C-Reactive Protein 0.7 (<1.0) mg/dL Total Protein 7.8 (6.3-8.2) g/dL Albumin 4.5 (3.5-5.1) g/dL Lipase 121 (23-300) U/L Urine Color Yellow (Yellow) Urine Appearance Cloudy H (Clear) Urine pH 5.0 (5.0-9.0) Ur Specific [place] > 1.045 H (1.001-1.035) Urine Protein Negative (Negative) mg/dL Urine Glucose (UA) 3+ H (Negative) mg/dL Urine Ketones Negative (Negative) mg/dL Ur Blood (Man) Negative (Negative) Urine Nitrate Negative (Negative) Urine Bilirubin Negative (Negative) Urine Urobilinogen 0.2 (<2.0) mg/dL Leukocyte Esterase Rfl Negative (Negative) [facility] DEL CARMEN/UL Urine RBC 0-2 (0-2) /hpf Urine WBC 0-5 (0-3) /hpf Ur Squamous Epith Cells None seen (Few) /hpf Urine Bacteria None seen /hpf Urine Casts 0-2 <Vitaliy Mann MD - Last Filed: 03/08/25 06:27> Imaging Data Attestation: I personally reviewed and interpreted this imaging study as follows: < Vitaliy Mann MD - Last Filed: 03/08/25 06:27> My impression: Impressions Pelvis CT 03/07/25 19:57 IMPRESSION: 12 mm enhancing left testicular lesion. There is a 2.4 x 1.6 cm walled off fluid collection in at the base of the scrotum. All CT scans at this facility are performed using low dose modulation techniques as appropriate to perform exam including the following: automated exposure control; use of iterative reconstruction technique; adjustment of the mA and/or kV according to patient size (this includes techniques or standardized protocols for targeted exams where dose is matched to indication/reason for exam). <Vitaliy Mann MD - Last Filed: 03/08/25 06:27> Discharge Plan Discharge Clinical Impression: Abscess of scrotal wall, Abnormal finding on diagnostic imaging of testicle Uncontrolled diabetes mellitus Qualifiers: Diabetes mellitus type: type 2 Glycemic state: with hyperglycemia Qualified Code(s): E11.65 - Type 2 diabetes mellitus with hyperglycemia <Lorelei Sood PA-C - Last Filed: 03/08/25 17:16> Patient Disposition: Still a Patient <Lorelei Sood PA-C - Last Filed: 03/08/25 17:16> Condition: Stable <Lorelei Sood PA-C - Last Filed: 03/08/25 17:16>
[2025-03-07 18:21] LABS: Add Urine Microscopic? YES; Appearance Urine Cloudy (Clear); Glucose Urine UA 3+ mg/dL (Negative); Leukocyte Esterase Ur Negative LEU/UL (Negative); Nitrate Urine Negative (Negative); Non Pathogenic Casts 0-2; Specific Grav Ur > 1.045 (1.001-1.035)
[2025-03-07 18:23] LABS: Hematocrit 47.7 % (42.0-52.0); Hemoglobin 15.9 g/dL (14.0-18.0); Immature Granulocyte Percent A 0.3 % (0-0.5); Lymphocytes Absolute Auto 1.57 K/mm3 (0.9-3.2); Mean Corpuscular HGB Conc 33.3 g/dl (32-36); Mean Corpuscular Hemoglobin 28.6 pg (26-34); Mean Corpuscular Volume 85.8 fl (80-100); Nucleated Red Blood Cells Absolute Auto 0.000 K/mm3 (0.0-0.012); Nucleated Red Blood Cells Perc 0.0 % (0.0-0.2); Platelet Count Result 216 k/mm3 (150-375); Red Blood Count 5.56 M/mm3 (4.6-6.20); White Blood Count 9.0 K/mm3 (4.5-10.0)
[2025-03-07 18:40] LABS: Alanine Aminotransferase 18 U/L (6-50); Albumin Level 4.5 g/dL (3.5-5.1); Alkaline Phosphatase 73 U/L (38-126); Anion Gap 10 mmol/L (4-12); Aspartate Amino Transferase 23 U/L (17-59); Bilirubin,Total 1.4 mg/dL (0.2-1.3); Blood Urea Nitrogen 20 mg/dL (9-20); Calcium 9.5 mg/dL (8.4-10.2); Carbon Dioxide 27 mmol/L (22-30); Chloride 100 mmol/L (98-107); Estimated CRCL calculation 82 ml/min; Estimated Glomerular Filt Rate > 60; Glucose 167 mg/dL (65-110); Lipase 121 U/L (23-300); Potassium 4.7 mmol/L (3.4-5.0); Sodium 137 mmol/L (137-145); Total Protein 7.8 g/dL (6.3-8.2)
[2025-03-07 19:16] LABS: CRP 0.7 mg/dL (<1.0)
[2025-03-07] MEDS: PIPERACILLIN/TAZOBACTAM SOD 4.5 GM in SODIUM CHLORIDE 0.9% IV 100 ML 200 ML IVPB (21:04)
--- NOTE | 2025-03-07 21:05 | PC.NURSE ---
per EDP no blood cultures needed.
[2025-03-07] MEDS: VANCOMYCIN 1,250 MG/NS 250 ML 1,250 MG/250 ML BAG 166.67 MG IVPB (22:01)
--- NOTE | 2025-03-07 22:53 | W.PM.PROC2 ---
Procedure Note - Detailed Date of Procedure 03/07/25 Pre-op Diagnosis scrotal abscess Post-op Diagnosis Same Procedure Performed incision and drainage of scrotal abscess Surgeon Mehul Nelson MD Anesthesia Local Findings scrotal abscess Description of Procedure Description procedure: After appropriate verbal consent was obtained the scrotum was prepped and draped with Betadine. Patient received IV vancomycin and Zosyn. The abscess was infiltrated with 1% plain lidocaine for local anesthesia a 3 cm vertical incision with an 11 blade was then performed into the abscess pocket with immediate drainage of purulent bloody abscess fluid this was cultured with a culturette and sent off the field for microbiology. The abscess cavity was then packed with iodoform gauze and a large fluff and scrotal support was then placed. Patient will be admitted to the hospital service for further postprocedure monitoring
--- NOTE | 2025-03-07 22:58 | WPDURCON ---
Assessment and Plan Assessment and plan (1) Scrotal abscess: Code(s): N49.2 - Inflammatory disorders of scrotum Status: Acute Assessment and Plan: Plan for incision and drainage of scrotal abscess risks, benefits, ultras, nature of the procedure and potential complications reviewed risk include but not limited to bleeding, infection, trauma surrounding/adjacent structures damage to the urinary tract need for additional procedures risk of worsening infection spread of infection cosmetic abnormalities poor wound healing given diabetes condition and anesthesia complications. Patient is agreeable to proceed in regards to his left testicular findings he will require follow-up ultrasound reviewed small risk of malignant changes I suspect though this is epididymo orchitis of his left testicle -agree with cultures and empiric broad spectrum IV abx -wound care/packing teaching tomorrow (2) Acute epididymitis: Code(s): N45.1 - Epididymitis Status: Acute Urology Consult Note HPI Date Seen: 03/07/25 Requesting Physician: Amanda Galan MD Primary Care Provider: Onofre Martin MD Consult Narrative Narrative: This is a 59-year-old gentleman with a 1 week history of enlarging scrotal abscess in the inferior portion of his right scrotum ultrasound of the testicles revealed orchitis particular the left cannot rule out mass or epididymitis CT shows 2 cm fluctuant abscess pocket in the dependent portion of the right scrotum. He went saw his primary care provider and was directed to come to the emergency room. Patient is a known diabetic on 4 drugs states his hemoglobin A1c is in the sevens. Denies any hematuria dysuria no prior history of scrotal abscesses he states he did have a inguinal or perirectal abscess that was drained in [place] many years ago. Patient is agreeable for bedside incision and drainage of scrotal abscess. Risks, benefits, alternatives, nature procedure and potential complications reviewed reviewed with the patient, . They are agreeable proceed all questions answered. Review of Systems Constitutional: Constitutional: Reports as per HPI, Denies body ache(s) and Denies chills Cardiovascular: Cardiovascular: Reports as per HPI and Denies chest pain Respiratory: Respiratory: Reports as per HPI Neurologic: Reports system reviewed and no additional complaints, except as documented Psychiatric: Psychiatric: Reports no additional psychiatric complaints Endocrine: Endocrine: Reports no additional endocrine complaints Hematologic/Lymphatic: Hematologic/Lymphatic: Reports no additional hematologic/lymphatic complaints PMFSH Past Medical History Medical History Erectile dysfunction Carpal tunnel syndrome, right HLD (hyperlipidemia) HTN (hypertension) Diabetes Surgical History Surgical History History of decompression of ulnar nerve (~08/04/21) History of carpal tunnel release (~08/04/21) Right CTR History of removal of cyst (~1990) Family History Family History Father Hypertension Cerebrovascular accident Mother Asthma Sibling Patient's brother is in good health Other Carcinoma of colon Diabetes mellitus Family history of cardiovascular disease Family history of malignant neoplasm Family history of malignant neoplasm of skin Social History Social History Smoking packs per day: 1.5 Smoking cigarettes per day: 30.0 Years smoked: 20 Smoking pack-years: 30.00 Smoking status: Former smoker Tobacco type: cigarettes Second hand tobacco smoke exposure: Yes Smoking end date: 04/09/06 Alcohol intake: never Substance use: never Substance use type: does not use Living arrangements: with family Occupation/Education: occupation Gender identity (if verbalized by the patient): Male Spiritual care concerns: No Meds Home Medications and Allergies Home Medications ?Medication ?Instructions ?Recorded ?Confirmed ?Type atorvastatin 20 mg tablet (Lipitor) 20 mg PO DAILY #90 tabs 08/31/24 03/07/25 Rx dapagliflozin propanediol 10 mg 10 mg PO DAILY #90 tabs 08/31/24 03/07/25 Rx tablet (Farxiga) metformin 500 mg tablet,extended 500 mg PO BID #360 tabs 08/31/24 03/07/25 Rx release 24 hr pen needle, diabetic 32 gauge x #100 ea 08/31/24 03/07/25 Rx tirzepatide 7.5 mg/0.5 mL 7.5 mg (0.5 mL) subcut WEEKLY #6 mL 08/31/24 03/07/25 Rx subcutaneous pen injector (Cirounsonido) tadalafil 5 mg tablet (Cialis) 5 mg PO DAILY #30 tabs 02/04/25 03/07/25 Rx insulin glargine 100 unit/mL (3 See Rx Instructions .Route 02/11/25 03/07/25 Rx mL) subcutaneous pen (Lantus .COMPLEX #21 mL Solostar U-100 Insulin) Allergies Allergy/AdvReac Type Severity Reaction Status Date / Time No Known Allergies Allergy Mild Verified 03/07/25 11:33 Vital Signs Vital Signs - 24 hr 03/07/25 15:55 03/07/25 18:09 03/07/25 19:31 Temperature 36.4 C Pulse Rate 95 89 Respiratory Rate 16 15 Blood Pressure 157/93 H 131/83 138/89 Pulse Oximetry 99 97 Oxygen Delivery Room Air 03/07/25 19:50 03/07/25 20:01 03/07/25 20:16 Temperature Pulse Rate Respiratory Rate Blood Pressure 140/89 138/86 141/84 H Pulse Oximetry 97 95 95 Oxygen Delivery 03/07/25 20:31 03/07/25 20:47 03/07/25 21:01 Temperature Pulse Rate Respiratory Rate Blood Pressure 136/89 127/67 141/87 H Pulse Oximetry 96 96 95 Oxygen Delivery 03/07/25 21:17 03/07/25 21:32 03/07/25 21:47 Temperature Pulse Rate 83 81 85 Respiratory Rate 17 11 L 12 Blood Pressure 151/89 H 133/84 142/82 H Pulse Oximetry 99 100 99 Oxygen Delivery 03/07/25 22:02 03/07/25 22:15 03/07/25 22:16 Temperature Pulse Rate 80 82 81 Respiratory Rate 14 14 14 Blood Pressure 136/89 128/70 Pulse Oximetry 96 95 94 Oxygen Delivery 03/07/25 22:30 03/07/25 22:31 Temperature Pulse Rate 88 89 Respiratory Rate 18 16 Blood Pressure 128/89 Pulse Oximetry 98 98 Oxygen Delivery Exam Const: Orientation/consciousness: oriented to person, oriented to place and oriented to time HENMT: Head: normal to inspection, No palpable skull fracture present, normocephalic and atraumatic Neck: Neck: normal visual inspection Resp: Effort & Inspection: normal respiratory effort and able to speak in complete sentences Cardio: Rate: regular rate Rhythm: regular rhythm GI: Inspection: normal to inspection and non-distended : General: Yes no CVA tenderness Other: 2 cmn inferior right scrotal abscess, fluctuant, no drainage, no crepitus, left epididymal inflammation/tenderness Neuro: General: oriented to person, oriented to place and oriented to time Extrem: General: normal to inspection and capillary refill normal Results Labs 03/07/25 18:09 03/07/25 18:09 Labs: Short CBC 03/07/25 Range/Units 18:09 WBC 9.0 (4.5-10.0) K/mm3 Hgb 15.9 (14.0-18.0) g/dL Hct 47.7 (42.0-52.0) % Plt Count 216 (150-375) k/mm3 BMP 03/07/25 18:09 Sodium 137 Potassium 4.7 Chloride 100 Carbon Dioxide 27 BUN 20 Creatinine 0.90 Glucose 167 H Calcium 9.5 Liver Function 03/07/25 Range/Units 18:09 Total Bilirubin 1.4 H (0.2-1.3) mg/dL AST 23 (17-59) U/L ALT 18 (6-50) U/L Alkaline Phosphatase 73 (38-126) U/L Albumin 4.5 (3.5-5.1) g/dL Urine 03/07/25 Range/Units 18:09 Urine Color Yellow (Yellow) Urine Appearance Cloudy H (Clear) Urine pH 5.0 (5.0-9.0) Ur Specific [place] > 1.045 H (1.001-1.035) Urine Protein Negative (Negative) mg/dL Urine Glucose (UA) 3+ H (Negative) mg/dL
--- NOTE | 2025-03-08 00:18 | PC.NURSE ---
This RN attempted to call report and was told they would call back.
[2025-03-08 00:34] VITALS: BMI 29.1
--- NOTE | 2025-03-08 00:36 | ADMGEN ---
This patient, Michelet Cardenas, was admitted to [facility] Surg Room 322-02. Patient/family oriented to hospital policies and general routines including ID bracelet, bed and alarms, visiting hours, pain management, procedures, bathroom and other care routines, personal items, smoking policy, room service/diet, and visiting hours. Information on how to activate the Rapid Response Team has been discussed. Patient/Family are encouraged to report perceived risks to care and to ask questions if they do not understand what they are told or what they should do.
[2025-03-08 00:53] VITALS: BP 146/95; PULSE 79; RESP 18; TEMP 36.2; O2SAT 98
[2025-03-08] MEDS: VANCOMYCIN HCL 1,000 MG in SODIUM CHLORIDE 0.9% IV 250 ML 250 MG IVPB (01:04)
[2025-03-08 06:00] VITALS: BP 136/83; PULSE 76; RESP 18; TEMP 35.6; O2SAT 100
--- NOTE | 2025-03-08 06:50 | P.PNUR_ITS ---
Progress Note: A&P Assessment and Plan (1) Scrotal abscess: Code(s): N49.2 - Inflammatory disorders of scrotum Status: Acute Assessment and Plan: * Patient feels much better following scrotal abscess incision and drainage * If his can learn to do packing changes (which patient says she is comfortable learning) he can probably be discharged later this afternoon or tomorrow. * I would recommend oral quinolone for 10 days Subjective Subjective Date/Time Seen: 03/08/25 06:50 Interval history: feeling much better following scrotal abscess incision and drainage Review of Systems Review of Systems: All systems reviewed & are unremarkable except as noted in HPI and below Exam Const: General: no acute distress Resp: Effort & Inspection: normal respiratory effort GI: Inspection: non-distended GI Palp: No abdominal tenderness and No Guarding due to palpation present (GI) Auscultation: normal bowel sounds : Scrotum: scrotum normal ( very scant drainage from I and D site in the ventral scrotal) Objective Data Vital Signs Vital Signs: Vital Signs - 24 hr 03/07/25 15:55 03/07/25 18:09 03/07/25 19:31 Temperature 97.6 F Pulse Rate 95 89 Respiratory Rate 16 15 Blood Pressure 157/93 H 131/83 138/89 Pulse Oximetry 99 97 Oxygen Delivery Room Air 03/07/25 19:50 03/07/25 20:01 03/07/25 20:16 Temperature Pulse Rate Respiratory Rate Blood Pressure 140/89 138/86 141/84 H Pulse Oximetry 97 95 95 Oxygen Delivery 03/07/25 20:31 03/07/25 20:47 03/07/25 21:01 Temperature Pulse Rate Respiratory Rate Blood Pressure 136/89 127/67 141/87 H Pulse Oximetry 96 96 95 Oxygen Delivery 03/07/25 21:17 03/07/25 21:32 03/07/25 21:47 Temperature Pulse Rate 83 81 85 Respiratory Rate 17 11 L 12 Blood Pressure 151/89 H 133/84 142/82 H Pulse Oximetry 99 100 99 Oxygen Delivery 03/07/25 22:02 03/07/25 22:15 03/07/25 22:16 Temperature Pulse Rate 80 82 81 Respiratory Rate 14 14 14 Blood Pressure 136/89 128/70 Pulse Oximetry 96 95 94 Oxygen Delivery 03/07/25 22:30 03/07/25 22:31 03/07/25 22:46 Temperature Pulse Rate 88 89 84 Respiratory Rate 18 16 19 Blood Pressure 128/89 132/80 Pulse Oximetry 98 98 98 Oxygen Delivery 03/07/25 23:01 03/07/25 23:17 03/07/25 23:32 Temperature Pulse Rate 81 86 87 Respiratory Rate 15 16 18 Blood Pressure 139/83 131/78 134/90 Pulse Oximetry 95 95 95 Oxygen Delivery 03/07/25 23:46 03/08/25 00:45 03/08/25 00:53 Temperature 97.2 F L Pulse Rate 79 Respiratory Rate 18 Blood Pressure 138/81 146/95 H Pulse Oximetry 94 98 Oxygen Delivery Room Air 03/08/25 06:00 Temperature 96.1 F L Pulse Rate 76 Respiratory Rate 18 Blood Pressure 136/83 Pulse Oximetry 100 Oxygen Delivery Intake/Output Intake/Output: Intake & Output 03/05/25 03/06/25 03/07/25 03/08/25 23:59 23:59 23:59 23:59 Intake Total 350 150 Balance 350 150 Meds/Results Medications: Active Medications Generic Name Dose Route Start Last Admin Trade Name Freq PRN Reason Stop Dose Admin Acetaminophen 650 mg 03/07/25 21:27 Acetaminophen 325 Mg Tablet PO Q4H PRN Mild Pain (1-3) or Fever Vancomycin HCl 1,500 mg in 500 mls @ 250 mls/hr 03/08/25 10:00 Vancomycin 1,500 Mg/Ns 500 Ml IVPB Q12H EDWIN Ondansetron HCl 4 mg 03/07/25 21:27 Ondansetron Inj 4 Mg/2 Ml Vial IV PUSH Q4H PRN Nausea Radiology Results: ITS Impressions Pelvis CT 03/07/25 19:57 IMPRESSION: 12 mm enhancing left testicular lesion. There is a 2.4 x 1.6 cm walled off fluid collection in at the base of the scrotum. All CT scans at this facility are performed using low dose modulation techniques as appropriate to perform exam including the following: automated exposure control; use of iterative reconstruction technique; adjustment of the mA and/or kV according to patient size (this includes techniques or standardized protocols for targeted exams where dose is matched to indication/reason for exam). Labs Labs: Laboratory Results - last 24 hr 03/07/25 18:09 WBC 9.0 RBC 5.56 Hgb 15.9 Hct 47.7 MCV 85.8 MCH 28.6 MCHC 33.3 RDW 13.1 Plt Count 216 MPV 9.1 Immature Gran % (Auto) 0.3 Neut % (Auto) 72.5 Lymph % (Auto) 17.5 L [place] % (Auto) 7.5 Eos % (Auto) 1.6 Baso % (Auto) 0.6 Lymph # (Auto) 1.57 [place] # (Auto) 0.7 H Eos # (Auto) 0.1 Baso # (Auto) 0.1 Abs Immat Gran (auto) 0.03 Absolute Neuts (auto) 6.5 Absolute Nucleated RBC 0.000 Nucleated RBC % 0.0 ESR 6 Sodium 137 Potassium 4.7 Chloride 100 Carbon Dioxide 27 Anion Gap 10 BUN 20 Creatinine 0.90 Estim Creat Clear Calc 82 Estimated GFR > 60 Glucose 167 H Calcium 9.5 Total Bilirubin 1.4 H AST 23 ALT 18 Alkaline Phosphatase 73 C-Reactive Protein 0.7 Total Protein 7.8 Albumin 4.5 Lipase 121 Urine Color Yellow Urine Appearance Cloudy H Urine pH 5.0 Ur Specific [place] > 1.045 H Urine Protein Negative Urine Glucose (UA) 3+ H Urine Ketones Negative Ur Blood (Man) Negative Urine Nitrate Negative Urine Bilirubin Negative Urine Urobilinogen 0.2 Leukocyte Esterase Rfl Negative Urine RBC 0-2 Urine WBC 0-5 Ur Squamous Epith Cells None seen Urine Bacteria None seen Urine Casts 0-2
[2025-03-08 07:23] LABS: Estimated CRCL calculation 77 ml/min; Estimated Glomerular Filt Rate > 60
--- NOTE | 2025-03-08 08:40 | PM.IMHP ---
H&P: HPI History of Present Illness Date/Time: 03/08/25 08:40 Chief Complaint: Scrotal abscess Narrative: This is a 59-year-old male diabetic patient who noticed a cystic lesion under his right testicle for approximately 1 week. The patient stated that he attempted to get into his primary care doctor for several days. He stated that when he was able to get into his primary care doctor an ultrasound had been ordered. The scrotal ultrasound was read as a following 1. Abnormal appearance and morphology of the left testis with ill-defined masslike region with mild increased vascular flow at the upper pole of the testis with elongated relatively thinned appearance to the inferior left testis which appears chronic. Differential includes focal orchitis or malignancy. If focal orchitis is suspected clinically would recommend follow-up ultrasound to document resolution. 2. Couple small nodular regions at the tail of the left epididymis which demonstrates similar echogenicity and echotexture as the left testis with which could be due to focal epididymitis or neoplasm. Given the irregular morphology with the elongated narrowed appearance to the lower pole the left testis and is similar echogenicity and echotexture, this could also represent displaced testicular tissue as sequela of chronic trauma. Correlate with clinical history. 3. Mild bilateral varicoceles. The patient was then sent to the emergency room. Pelvis CT was read as a 12 mm enhancing left testicular lesion there is a 2 x 4 x 1 x 6 cm wall of fluid collection at the base of the scrotum. Urology has been consulted and saw the patient in the emergency room. The abscess was drained per Urology and packed. The patient was started on Zosyn and vancomycin in the emergency room. The patient's blood sugar was 167. He had 3+ glucose in his urine. The patient is being admitted to observation status on the date of service of 03/08/2025. Review of Systems Constitutional: Constitutional: Reports as per HPI and Reports no additional constitutional complaints Eyes: Eyes: Reports as per HPI and Reports no additional eye complaints ENT: Reports system reviewed and no additional complaints, except as documented and Reports Normal hearing present Cardiovascular: Cardiovascular: Reports no additional cardiovascular complaints Respiratory: Respiratory: Reports as per HPI and Reports no additional respiratory complaints Gastrointestinal: Gastrointestinal: Reports as per HPI and Reports no additional gastrointestinal complaints Musculoskeletal: Musculoskeletal: Reports no additional musculoskeletal complaints Integumentary/Breasts: Skin/Breast: Reports system reviewed and no additional complaints, except as docu Neurologic: Reports system reviewed and no additional complaints, except as documented and Reports Normal hearing present Psychiatric: Psychiatric: Reports no additional psychiatric complaints and Reports as per HPI Hematologic/Lymphatic: Hematologic/Lymphatic: Reports no additional hematologic/lymphatic complaints Allergic/Immunologic: Allergic/Immunologic: Reports no additional allergic/immunologic complaints [facility] Past Medical History Medical History Erectile dysfunction Carpal tunnel syndrome, right HLD (hyperlipidemia) HTN (hypertension) Diabetes Surgical History Surgical History History of decompression of ulnar nerve (~08/04/21) History of carpal tunnel release (~08/04/21) Right CTR History of removal of cyst (~1990) Family History Family History Father Hypertension Cerebrovascular accident Mother Asthma Sibling Patient's brother is in good health Other Carcinoma of colon Diabetes mellitus Family history of cardiovascular disease Family history of malignant neoplasm Family history of malignant neoplasm of skin Social History Social History (Updated 03/08/25 @ 08:49 by Francine Huitron APRN) Social History: He is and lives with his . He did serve in the and was based in [facility] and 1 time. 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 He plans to retire in 8 years. He has 3 children. His is his durable viiba-tw-yysmbgne for healthcare. Code status: Full code Smoking packs per day: 1.5 Smoking cigarettes per day: 30.0 Years smoked: 20 Smoking pack-years: 30.00 Smoking status: Former smoker Tobacco type: cigarettes Second hand tobacco smoke exposure: Yes Smoking end date: 04/09/06 Alcohol intake: former Substance use: never Substance use type: does not use Lack of Transportation: No Lack of Food: Never True Current Housing: I Have Housing Concerned About Future Housing: No Difficulty Paying Gas/Electric Bills: No Difficulty Paying for Meds: No Currently Unemployed: No Education: High School Diploma/GED Difficulty w/ Childcare or Family Care: No Living arrangements: with family Occupation/Education: occupation Gender identity (if verbalized by the patient): Male Spiritual care concerns: No Meds Home Medications and Allergies Home Medications ?Medication ?Instructions ?Recorded ?Confirmed ?Type atorvastatin 20 mg tablet (Lipitor) 20 mg PO DAILY #90 tabs 08/31/24 03/08/25 Rx dapagliflozin propanediol 10 mg 10 mg PO DAILY #90 tabs 08/31/24 03/08/25 Rx tablet (Farxiga) metformin 500 mg tablet,extended 500 mg PO BID #360 tabs 08/31/24 03/08/25 Rx release 24 hr pen needle, diabetic 32 gauge x #100 ea 08/31/24 03/07/25 Rx /32 tirzepatide 7.5 mg/0.5 mL 7.5 mg (0.5 mL) subcut WEEKLY #6 mL 08/31/24 03/08/25 Rx subcutaneous pen injector (Mounjaro) tadalafil 5 mg tablet (Cialis) 5 mg PO DAILY #30 tabs 02/04/25 03/08/25 Rx insulin glargine 100 unit/mL (3 See Rx Instructions .Route 02/11/25 03/08/25 Rx mL) subcutaneous pen (Lantus .COMPLEX #21 mL Solostar U-100 Insulin) ciprofloxacin HCl 500 mg tablet 500 mg PO Q12HR #20 tabs 03/08/25 Rx Allergies Allergy/AdvReac Type Severity Reaction Status Date / Time empagliflozin (From AdvReac Intermediate [place] Verified 03/08/25 10:12 Jardiance) Vital Signs Vital Signs - 24 hr 03/07/25 15:55 03/07/25 18:09 03/07/25 19:31 Temperature 97.6 F Pulse Rate 95 89 Respiratory Rate 16 15 Blood Pressure 157/93 H 131/83 138/89 Pulse Oximetry 99 97 Oxygen Delivery Room Air 03/07/25 19:50 03/07/25 20:01 03/07/25 20:16 Temperature Pulse Rate Respiratory Rate Blood Pressure 140/89 138/86 141/84 H Pulse Oximetry 97 95 95 Oxygen Delivery 03/07/25 20:31 03/07/25 20:47 03/07/25 21:01 Temperature Pulse Rate Respiratory Rate Blood Pressure 136/89 127/67 141/87 H Pulse Oximetry 96 96 95 Oxygen Delivery 03/07/25 21:17 03/07/25 21:32 03/07/25 21:47 Temperature Pulse Rate 83 81 85 Respiratory Rate 17 11 L 12 Blood Pressure 151/89 H 133/84 142/82 H Pulse Oximetry 99 100 99 Oxygen Delivery 03/07/25 22:02 03/07/25 22:15 03/07/25 22:16 Temperature Pulse Rate 80 82 81 Respiratory Rate 14 14 14 Blood Pressure 136/89 128/70 Pulse Oximetry 96 95 94 Oxygen Delivery 03/07/25 22:30 03/07/25 22:31 03/07/25 22:46 Temperature Pulse Rate 88 89 84 Respiratory Rate 18 16 19 Blood Pressure 128/89 132/80 Pulse Oximetry 98 98 98 Oxygen Delivery 03/07/25 23:01 03/07/25 23:17 03/07/25 23:32 Temperature Pulse Rate 81 86 87 Respiratory Rate 15 16 18 Blood Pressure 139/83 131/78 134/90 Pulse Oximetry 95 95 95 Oxygen Delivery 03/07/25 23:46 03/08/25 00:45 03/08/25 00:53 Temperature 97.2 F L Pulse Rate 79 Respiratory Rate 18 Blood Pressure 138/81 146/95 H Pulse Oximetry 94 98 Oxygen Delivery Room Air 03/08/25 06:00 Temperature 96.1 F L Pulse Rate 76 Respiratory Rate 18 Blood Pressure 136/83 Pulse Oximetry 100 Oxygen Delivery Exam Const: General: cooperative, healthy appearing, comfortable, no acute distress, well developed, awake, Physically active, average body habitus and well nourished Nutritional Appearance: average body habitus and well nourished Orientation/consciousness: oriented to person, oriented to place, oriented to time and patient oriented x3 Limitations: no limitations HENMT: Head: normal to inspection, No palpable skull fracture present, normocephalic, atraumatic and abrasion Face/Nose/Sinus: Normal external nose present Eyes: General: appearance normal, both eyes and all related structures Alignment and Position: alignment normal Periorbital: periorbital findings normal Eyelids: eyelids normal Neck: Neck: normal visual inspection, full ROM, no lymphadenopathy, trachea midline and supple Chest: Chest palpation & inspection: normal inspection of the chest Resp: Effort & Inspection: normal respiratory effort Auscultation: clear to auscultation bilaterally Cardio: Palpation: normal PMI Rate: regular rate Rhythm: regular rhythm Heart sounds: S1 normal heart sound present and S2 normal heart sound present Peripheral pulses: Peripheral pulses 2+ throughout GI: Inspection: normal to inspection Auscultation: normal bowel sounds Rectal Exam: deferred Back/Spine/Pelvis: Back: no CVA tenderness Cervical Spine: cervical ROM normal Skin: General skin exam: normal color Lesions: no lesions Rashes: no rashes Trauma: no lacerations or abrasions Wounds: no wounds Hair: normal Nails: normal Other: Right scrotum edematous. Packing intact Just under the right scrotal area. There is some bloody drainage noted. Neuro: General: oriented to person, oriented to place, oriented to time and patient oriented x3 Cranial nerves: Yes Equal, round and reactive pupils present and Yes Normal hearing present Cognition (Neuro): normal cognition Speech: normal speech Gait exam (Neuro): Normal gait present Motor exam (neuro): 5/5 motor strength present throughout Sensory Exam: normal sensation Extrem: General: normal to inspection Right upper extremity: normal to inspection and shoulder/upper arm Left upper extremity: normal to inspection and shoulder/upper arm Right lower extremity: normal to inspection Left lower extremity: normal to inspection Psych: Appearance: grossly normal Mental Status: mental status grossly normal Speech and movement: Normal speech and movement present Affect: normal affect Attitude: cooperative Thought process: Normal thought process present Thought content: Yes Normal thought content present Insight: Good insight present (Psych) Judgement: Good judgement present (Psych) H&P: Results Labs Labs: Short CBC 03/07/25 Range/Units 18:09 WBC 9.0 (4.5-10.0) K/mm3 Hgb 15.9 (14.0-18.0) g/dL Hct 47.7 (42.0-52.0) % Plt Count 216 (150-375) k/mm3 [facility] 03/07/25 03/08/25 18:09 06:13 Sodium 137 Potassium 4.7 Chloride 100 Carbon Dioxide 27 BUN 20 Creatinine 0.90 0.97 Glucose 167 H Calcium 9.5 Liver Function 03/07/25 Range/Units 18:09 Total Bilirubin 1.4 H (0.2-1.3) mg/dL AST 23 (17-59) U/L ALT 18 (6-50) U/L Alkaline Phosphatase 73 (38-126) U/L Albumin 4.5 (3.5-5.1) g/dL Urine 03/07/25 Range/Units 18:09 Urine Color Yellow (Yellow) Urine Appearance Cloudy H (Clear) Urine pH 5.0 (5.0-9.0) Ur Specific [place] > 1.045 H (1.001-1.035) Urine Protein Negative (Negative) mg/dL Urine Glucose (UA) 3+ H (Negative) mg/dL Imaging CT scan - abdomen: Radiologist's impression: Impressions Pelvis CT 03/07/25 19:57 IMPRESSION: 12 mm enhancing left testicular lesion. There is a 2.4 x 1.6 cm walled off fluid collection in at the base of the scrotum. All CT scans at this facility are performed using low dose modulation techniques as appropriate to perform exam including the following: automated exposure control; use of iterative reconstruction technique; adjustment of the mA and/or kV according to patient size (this includes techniques or standardized protocols for targeted exams where dose is matched to indication/reason for exam). Assessment and Plan Assessment and plan (1) Scrotal abscess: Code(s): N49.2 - Inflammatory disorders of scrotum Status: Acute Assessment and Plan: -urology has been consulted and has already seen the patient. Incision and drainage the procedure has been performed per Urology. The packing remains intact. -blood and anaerobic/aerobic cultures are pending. -patient was started on broad-spectrum antibiotics Zosyn and vanco. -the patient is afebrile and has no leukocytosis noted -patient stated that he had a history of having a cystic lesion back in 2009. -will need tight control of his diabetes for improved wound healing (2) Diabetes: Code(s): E11.9 - Type 2 diabetes mellitus without complications Status: Acute Assessment and Plan: -hemoglobin A1c was 8.1 01/01/2025. -metformin is on hold at this time. -sliding scale insulin with Accu-Cheks AC and HS -continue with Lantus. -mounjaro is on hold at this time. -continue Farxiga (3) HLD (hyperlipidemia): Code(s): E78.5 - Hyperlipidemia, unspecified Status: Acute Assessment and Plan: -continue with atorvastatin Quality VTE Prophylaxis VTE prophylaxis: mechanical ordered
[2025-03-08] MEDS: ATORVASTATIN 20 MG TABLET PO (09:46)
[2025-03-08] MEDS: PIPERACILLIN/TAZOBACTAM SOD 3.375 GM in SODIUM CHLORIDE 0.9% IV 50 ML 100 ML IVPB (09:47)
[2025-03-08 09:52] LABS: Hemoglobin A1C 8.0 % (<5.7)
--- NOTE | 2025-03-08 10:42 | P.PNIM_ITS ---
Progress Note: A&P Assessment and Plan (1) Scrotal abscess: Code(s): N49.2 - Inflammatory disorders of scrotum Status: Acute Assessment and Plan: * -urology has been consulted and has already seen the patient. Incision and drainage the procedure has been performed per Urology Packing remains intact. * blood and anaerobic/aerobic cultures are pending. * patient was started on broad-spectrum antibiotics Zosyn and vanco. * the patient is afebrile and has no leukocytosis be * patient stated that he had a history of having a cystic lesion back in 2009. * will need tight control of his diabetes for improved wound healing (2) Diabetes: Code(s): E11.9 - Type 2 diabetes mellitus without complications Status: Acute Assessment and Plan: * hemoglobin A1c was 8.1 01/01/2025. * metformin is on hold at this time. * sliding scale insulin with Accu-Cheks AC and HS * continue with Lantus. * mounjaro is on hold at this time. * continue Farxiga (3) HLD (hyperlipidemia): Code(s): E78.5 - Hyperlipidemia, unspecified Status: Acute Assessment and Plan: * continue with atorvastatin Subjective Date/time seen: 03/08/25 10:42 Interval history: 59-year-old male diabetic patient who noticed a cystic lesion under his right testicle for approximately 1 week. The patient stated that he attempted to get into his primary care doctor for several days. He stated that when he was able to get into his primary care doctor an ultrasound had been ordered. 03/08/2025 Patient sitting comfortably in bed at time of examination. Patient is accompanied by . Plan for repacking today with present so that they may be able to pack the wound themselves at home. Patient otherwise doing well. Blood cultures drawn, pending. Will start ciprofloxacin for 10 days upon discharge. Review of Systems Constitutional: Constitutional: Reports as per HPI and Reports no additional constitutional complaints Eyes: Eyes: Reports as per HPI and Reports no additional eye complaints ENT: Reports system reviewed and no additional complaints, except as documented and Reports Normal hearing present Cardiovascular: Cardiovascular: Reports no additional cardiovascular complaints Respiratory: Respiratory: Reports as per HPI and Reports no additional respiratory complaints Gastrointestinal: Gastrointestinal: Reports as per HPI and Reports no additional gastrointestinal complaints Musculoskeletal: Musculoskeletal: Reports no additional musculoskeletal complaints Integumentary/Breasts: Skin/Breast: Reports system reviewed and no additional complaints, except as docu Neurologic: Reports system reviewed and no additional complaints, except as documented and Reports Normal hearing present Psychiatric: Psychiatric: Reports no additional psychiatric complaints and Reports as per HPI Hematologic/Lymphatic: Hematologic/Lymphatic: Reports no additional hematologic/lymphatic complaints Allergic/Immunologic: Allergic/Immunologic: Reports no additional allergic/immunologic complaints Exam Const: General: cooperative, healthy appearing, comfortable, no acute distress, well developed, awake, Physically active, average body habitus and well nourished Nutritional Appearance: average body habitus and well nourishe d Orientation/consciousness: oriented to person, oriented to place, oriented to time and patient oriented x3 Limitations: no limitations HENMT: Head: normal to inspection, No palpable skull fracture present, normocephalic, atraumatic and abrasion Face/Nose/Sinus: Normal external nose present Eyes: General: appearance normal, both eyes and all related structures Alignment and Position: alignment normal Periorbital: periorbital findings normal Eyelids: eyelids normal Pupils: Equal, round and reactive pupils present Neck: Neck: normal visual inspection, full ROM, no lymphadenopathy, trachea midline and supple Chest: Chest palpation & inspection: normal inspection of the chest Resp: Effort & Inspection: normal respiratory effort Auscultation: clear to auscultation bilaterally Cardio: Palpation: normal PMI Rate: regular rate Rhythm: regular rhythm Heart sounds: S1 normal heart sound present and S2 normal heart sound present Peripheral pulses: Peripheral pulses 2+ throughout GI: Inspection: normal to inspection Auscultation: normal bowel sounds R ectal Exam: deferred : General: Yes no CVA tenderness Back/Spine/Pelvis: Back: no CVA tenderness Cervical Spine: cervical ROM normal Skin: General skin exam: normal color Lesions: no lesions Rashes: no rashes Trauma: no lacerations or abrasions Wounds: no wounds Hair: normal Nails: normal Other: Right scrotum edematous. Packing intact to right. Just under the right scrotal area. There is some bloody drainage noted. Neuro: General: oriented to person, oriented to place, oriented to time and patient oriented x3 Cranial nerves: Yes Equal, round and reactive pupils present and Yes Normal hearing present Cognition (Neuro): normal cognition Speech: normal speech Gait exam (Neuro): Normal gait present Motor exam (neuro): 5 motor strength present throughout Sensory Exam: normal sensation Extrem: General: normal to inspection Right upper extremity: normal to inspection and shoulder/upper arm Left upper extremity: normal to inspection and shoulder/upper arm Right lower extremity: normal to inspection Left lower extremity: normal to inspection Psych: Appearance: grossly normal Mental Status: mental status grossly normal Speech and movement: Normal speech and movement present Affect: normal affect Attitude: cooperative Thought process: Normal thought process present Insight: Good insight present (Psych) Judgement: Good judgement present (Psych) Objective Data Vital Signs Vital Signs: Vital Signs - 24 hr 03/07/25 15:55 03/07/25 18:09 03/07/25 19:31 Temperature 97.6 F Pulse Rate 95 89 Respiratory Rate 16 15 Blood Pressure 157/93 H 131/83 138/89 Pulse Oximetry 99 97 Oxygen Delivery Room Air 03/07/25 19:50 03/07/25 20:01 03/07/25 20:16 Temperature Pulse Rate Respiratory Rate Blood Pressure 140/89 138/86 141/84 H Pulse Oximetry 97 95 95 Oxygen Delivery 03/07/25 20:31 03/07/25 20:47 03/07/25 21:01 Temperature Pulse Rate Respiratory Rate Blood Pressure 136/89 127/67 141/87 H Pulse Oximetry 96 96 95 Oxygen Delivery 03/07/25 21:17 03/07/25 21:32 03/07/25 21:47 Temperature Pulse Rate 83 81 85 Respiratory Rate 17 11 L 12 Blood Pressure 151/89 H 133/84 142/82 H Pulse Oximetry 99 100 99 Oxygen Delivery 03/07/25 22:02 03/07/25 22:15 03/07/25 22:16 Temperature Pulse Rate 80 82 81 Respiratory Rate 14 14 14 Blood Pressure 136/89 128/70 Pulse Oximetry 96 95 94 Oxygen Delivery 03/07/25 22:30 03/07/25 22:31 03/07/25 22:46 Temperature Pulse Rate 88 89 84 Respiratory Rate 18 16 19 Blood Pressure 128/89 132/80 Pulse Oximetry 98 98 98 Oxygen Delivery 03/07/25 23:01 03/07/25 23:17 03/07/25 23:32 Temperature Pulse Rate 81 86 87 Respiratory Rate 15 16 18 Blood Pressure 139/83 131/78 134/90 Pulse Oximetry 95 95 95 Oxygen Delivery 03/07/25 23:46 03/08/25 00:45 03/08/25 00:53 Temperature 97.2 F L Pulse Rate 79 Respiratory Rate 18 Blood Pressure 138/81 146/95 H Pulse Oximetry 94 98 Oxygen Delivery Room Air 03/08/25 06:00 Temperature 96.1 F L Pulse Rate 76 Respiratory Rate 18 Blood Pressure 136/83 Pulse Oximetry 100 Oxygen Delivery Intake/Output Intake/Output: Intake & Output 03/05/25 03/06/25 03/07/25 03/08/25 23:59 23:59 23:59 23:59 Intake Total 350 390 Balance 350 390 Meds/Results Medications: Active Medications Generic Name Dose Route Start Last Admin Trade Name Freq PRN Reason Stop Dose Admin Acetaminophen 650 mg 03/07/25 21:27 Acetaminophen 325 Mg Tablet PO Q4H PRN Mild Pain (1-3) or Fever Atorvastatin Calcium 20 mg 03/08/25 09:00 03/08/25 09:46 Atorvastatin 20 Mg Tablet PO 20 mg DAILY EDWIN Administration Ciprofloxacin 500 mg 03/08/25 10:30 Ciprofloxacin 500 Mg Tab PO 03/17/25 21:01 Q12HR [facility] Dextrose 12.5 gm 03/08/25 08:44 Dextrose 50% 25 Gm/50 Ml Syringe IV PUSH PRN PRN Hypoglycemia Protocol Empagliflozin 25 mg 03/08/25 09:00 03/08/25 10:16 Empagliflozin 25 Mg Tablet PO Not Given On Hold: 03/08/25 10:26 DAILY [facility] Comment: HOLDING JARDIANCE D/T FLUSHING REACTION Glucagon 1 mg 03/08/25 08:44 Glucagon For Inj 1 Mg Vial IM PRN PRN Hypoglycemia Protocol Glucose 15 gm 03/08/25 08:44 Glucose Oral Gel 15 Gm Of Glucse In 37.5 Gm Tube PO PRN PRN Hypoglycemia Protocol Dextrose 1,000 mls @ 100 mls/hr 03/08/25 08:44 Dextrose 5% 1,000 Ml IVPB PRN PRN Hypoglycemia Protocol Insulin Aspart 2 - 5 units 03/08/25 12:00 Insulin Aspart (*Bkc) 100 Units/Ml SUB-Q TIDWM EDWIN Protocol Insulin Glargine 0 units 03/08/25 08:50 Insulin Glargine (*Bkc) 100 Units/Ml SUB-Q .COMPLEX [facility] Miscellaneous Information 0 each 03/08/25 00:01 Clarify Dose Of Lantus? XX 04/07/25 00:00 CLARIFY EDWIN Ondansetron HCl 4 mg 03/07/25 21:27 Ondansetron Inj 4 Mg/2 Ml Vial IV PUSH Q4H PRN Nausea Radiology Results: ITS Impressions Pelvis CT 03/07/25 19:57 IMPRESSION: 12 mm enhancing left testicular lesion. There is a 2.4 x 1.6 cm walled off fluid collection in at the base of the scrotum. All CT scans at this facility are performed using low dose modulation techniques as appropriate to perform exam including the following: automated exposure control; use of iterative reconstruction technique; adjustment of the mA and/or kV according to patient size (this includes techniques or standardized protocols for targeted exams where dose is matched to indication/reason for exam). Labs Labs: Laboratory Results - last 24 hr 03/07/25 03/08/25 18:09 06:13 WBC 9.0 RBC 5.56 Hgb 15.9 Hct 47.7 MCV 85.8 MCH 28.6 MCHC 33.3 RDW 13.1 Plt Count 216 MPV 9.1 Immature Gran % (Auto) 0.3 Neut % (Auto) 72.5 Lymph % (Auto) 17.5 L [place] % (Auto) 7.5 Eos % (Auto) 1.6 Baso % (Auto) 0.6 Lymph # (Auto) 1.57 [place] # (Auto) 0.7 H Eos # (Auto) 0.1 Baso # (Auto) 0.1 Abs Immat Gran (auto) 0.03 Absolute Neuts (auto) 6.5 Absolute Nucleated RBC 0.000 Nucleated RBC % 0.0 ESR 6 Sodium 137 Potassium 4.7 Chloride 100 Carbon Dioxide 27 Anion Gap 10 BUN 20 Creatinine 0.90 0.97 Estim Creat Clear Calc 82 77 Estimated GFR > 60 > 60 Glucose 167 H Hemoglobin A1c 8.0 H Calcium 9.5 Total Bilirubin 1.4 H AST 23 ALT 18 Alkaline Phosphatase 73 C-Reactive Protein 0.7 Total Protein 7.8 Albumin 4.5 Lipase 121 Urine Color Yellow Urine Appearance Cloudy H Urine pH 5.0 Ur Specific [place] > 1.045 H Urine Protein Negative Urine Glucose (UA) 3+ H Urine Ketones Negative Ur Blood (Man) Negative Urine Nitrate Negative Urine Bilirubin Negative Urine Urobilinogen 0.2 Leukocyte Esterase Rfl Negative Urine RBC 0-2 Urine WBC 0-5 Ur Squamous Epith Cells None seen Urine Bacteria None seen Urine Casts 0-2 Quality VTE Prophylaxis VTE prophylaxis: mechanical ordered
[2025-03-08] MEDS: CIPROFLOXACIN 500 MG TAB PO (11:11)
--- NOTE | 2025-03-08 12:07 | PM.DS ---
DS: Admitting Diagnosis Discharge Date 03/08/2025 Admitting Diagnosis Scrotal abscess, epididymitis DS: Discharge Diagnosis Discharge Diagnosis (1) Scrotal abscess: Code(s): N49.2 - Inflammatory disorders of scrotum Status: Acute Assessment and Plan: -urology has been consulted and has already seen the patient. Incision and drainage the procedure has been performed per Urology Packing remains intact. blood and anaerobic/aerobic cultures are pending. patient was started on broad-spectrum antibiotics Zosyn and vanco. the patient is afebrile and has no leukocytosis be patient stated that he had a history of having a cystic lesion back in 2009. will need tight control of his diabetes for improved wound healing (2) Diabetes: Code(s): E11.9 - Type 2 diabetes mellitus without complications Status: Acute Assessment and Plan: hemoglobin A1c was 8.1 01/01/2025. metformin is on hold at this time. sliding scale insulin with Accu-Cheks AC and HS continue with Lantus. mounjaro is on hold at this time. continue Farxiga (3) HLD (hyperlipidemia): Code(s): E78.5 - Hyperlipidemia, unspecified Status: Acute Assessment and Plan: continue with atorvastatin DS: Summary Hospital Course Reason for hospitalization: Scrotal abscess Hospital Course: For HPI: This is a 59-year-old male diabetic patient who noticed a cystic lesion under his right testicle for approximately 1 week. The patient stated that he attempted to get into his primary care doctor for several days. He stated that when he was able to get into his primary care doctor an ultrasound had been ordered. The scrotal ultrasound was read as a following 1. Abnormal appearance and morphology of the left testis with ill-defined masslike region with mild increased vascular flow at the upper pole of the testis with elongated relatively thinned appearance to the inferior left testis which appears chronic. Differential includes focal orchitis or malignancy. If focal orchitis is suspected clinically would recommend follow-up ultrasound to document resolution. 2. Couple small nodular regions at the tail of the left epididymis which demonstrates similar echogenicity and echotexture as the left testis with which could be due to focal epididymitis or neoplasm. Given the irregular morphology with the elongated narrowed appearance to the lower pole the left testis and is similar echogenicity and echotexture, this could also represent displaced testicular tissue as sequela of chronic trauma. Correlate with clinical history. 3. Mild bilateral varicoceles. The patient was then sent to the emergency room. Pelvis CT was read as a 12 mm enhancing left testicular lesion there is a 2 x 4 x 1 x 6 cm wall of fluid collection at the base of the scrotum. Urology has been consulted and saw the patient in the emergency room. The abscess was drained per Urology and packed. The patient was started on Zosyn and vancomycin in the emergency room. The patient's blood sugar was 167. He had 3+ glucose in his urine. The patient is being admitted to observation status on the date of service of 03/08/2025. Hospital course: Urology was consulted regarding scrotal abscess/acute epididymitis. Incision and drainage of the scrotal abscess was performed in the emergency department. The need to discuss risk of bleeding/infection/trauma of the surrounding structures, as well as need for additional procedures and worsening infection spread was discussed with patient. The abscess was incised and drained with appropriate postprocedure packing. Cultures were drawn and patient was started on empiric broad-spectrum IV antibiotics. Patient was reassessed by Urology on the morning of 03/08 and was able to repack the wound with the present who is comfortable repacking the wound at home. I spoke with Dr. Aguilar regarding discharge plan and he states that he is comfortable with discharging the patient at this time with appropriate follow-up in the outpatient setting with Urology for repeat ultrasound, as well as monitoring blood cultures over the next few days. I spoke with the patient regarding discharge at this time verses continued hospitalization with IV antibiotics. Patient expressed great desire to be discharged at this time. Discussed the risk of leaving hospital at this time with blood cultures still pending, we as well as discussed the possibility of needing to come back to the hospital for possible bloodstream infection if the blood cultures were positive, and patient agrees that he would like to be discharged at this time and would be willing to come back if blood cultures were positive. Patient is otherwise hemodynamically stable at this time. Remains afebrile, without leukocytosis, wound dressing appears dry and intact. No electrolyte abnormalities and vital signs otherwise are stable. Plan for discharge at this time. Status at Discharge Functional status at discharge: independent ambulation Overall status at discharge: patient is back to baseline Time Spent with Patient Time attestation: Total time spent providing and/or coordinating discharge services: 32 Exam Const: General: cooperative, healthy appearing, comfortable, no acute distress, well developed, awake, Physically active, average body habitus and well nourished Nutritional Appearance: average body habitus and well nourished Orientation/consciousness: oriented to person, oriented to place, oriented to time and patient oriented x3 Limitations: no limitations HENMT: Head: normal to inspection, No palpable skull fracture present, normocephalic, atraumatic and abrasion Face/Nose/Sinus: Normal external nose present Eyes: General: appearance normal, both eyes and all related structures Alignment and Position: alignment normal Periorbital: periorbital findings normal Eyelids: eyelids normal Pupils: Equal, round and reactive pupils present Neck: Neck: normal visual inspection, full ROM, no lymphadenopathy, trachea midline and supple Chest: Chest palpation & inspection: normal inspection of the chest Resp: Effort & Inspection: normal respiratory effort Auscultation: clear to auscultation bilaterally Cardio: Palpation: normal PMI Rate: regular rate Rhythm: regular rhythm Heart sounds: S1 normal heart sound present and S2 normal heart sound present Peripheral pulses: Peripheral pulses 2+ throughout GI: Inspection: normal to inspection Auscultation: normal bowel sounds Rectal Exam: deferred : General: Yes no CVA tenderness Other: Normal scrotum. Packing intact to right. Just under the right scrotal area. Dressing dry and intact Back/Spine/Pelvis: Back: no CVA tenderness Cervical Spine: cervical ROM normal Skin: General skin exam: normal color Lesions: no lesions Rashes: no rashes Trauma: no lacerations or abrasions Wounds: no wounds Hair: normal Nails: normal Neuro: General: oriented to person, oriented to place, oriented to time and patient oriented x3 Cranial nerves: Yes Equal, round and reactive pupils present and Yes Normal hearing present Cognition (Neuro): normal cognition Speech: normal speech Gait exam (Neuro): Normal gait present Motor exam (neuro): 5/5 motor strength present throughout Sensory Exam: normal sensation Extrem: General: normal to inspection Right upper extremity: normal to inspection and shoulder/upper arm Left upper extremity: normal to inspection and shoulder/upper arm Right lower extremity: normal to inspection Left lower extremity: normal to inspection Psych: Appearance: grossly normal Mental Status: mental status grossly normal Speech and movement: Normal speech and movement present Affect: normal affect Attitude: cooperative Thought process: Normal thought process present Insight: Good insight present (Psych) Judgement: Good judgement present (Psych) DS: Data Data Completed and Pending Labs on day of discharge: Labs from last 24 hours 03/08/25 03/08/25 03/07/25 11:44 06:13 18:09 WBC 9.0 RBC 5.56 Hgb 15.9 Hct 47.7 MCV 85.8 MCH 28.6 MCHC 33.3 RDW 13.1 Plt Count 216 MPV 9.1 Immature Gran % (Auto) 0.3 Neut % (Auto) 72.5 Lymph % (Auto) 17.5 L [place] % (Auto) 7.5 Eos % (Auto) 1.6 Baso % (Auto) 0.6 Lymph # (Auto) 1.57 [place] # (Auto) 0.7 H Eos # (Auto) 0.1 Baso # (Auto) 0.1 Abs Immat Gran (auto) 0.03 Absolute Neuts (auto) 6.5 Absolute Nucleated RBC 0.000 Nucleated RBC % 0.0 ESR 6 Sodium 137 Potassium 4.7 Chloride 100 Carbon Dioxide 27 Anion Gap 10 BUN 20 Creatinine 0.97 0.90 Estim Creat Clear Calc 77 82 Estimated GFR > 60 > 60 Glucose 167 H POC Capillary Glucose 225 H Hemoglobin A1c 8.0 H Calcium 9.5 Total Bilirubin 1.4 H AST 23 ALT 18 Alkaline Phosphatase 73 C-Reactive Protein 0.7 Total Protein 7.8 Albumin 4.5 Lipase 121 Urine Color Yellow Urine Appearance Cloudy H Urine pH 5.0 Ur Specific [place] > 1.045 H Urine Protein Negative Urine Glucose (UA) 3+ H Urine Ketones Negative Ur Blood (Man) Negative Urine Nitrate Negative Urine Bilirubin Negative Urine Urobilinogen 0.2 Leukocyte Esterase Rfl Negative Urine RBC 0-2 Urine WBC 0-5 Ur Squamous Epith Cells None seen Urine Bacteria None seen Urine Casts 0-2 Discharge Plan Discharge Attending physician on discharge: Amanda Galan Consulting providers: Mehul Nelson; Rashad Blandon Discharging Clinician: Rashad Blandon Anticipated Discharge Date/Time: 03/08/25 12:04 Patient Disposition: Home Activity: as tolerated Diet: regular Discharge Instructions: Discharge disposition: Home Take medications as prescribed. You will be prescribed 10 day course of ciprofloxacin. Blood cultures were drawn to rule out a bloodstream infection, however there still pending at this time. We will continue to monitor these over the next few days and if they result as positive we will have to call you to have be readmitted for IV antibiotics. Monitor blood pressures Take caution while standing, rising, or moving Change positions slowly taking a break between each position change If you standing feel dizzy sit back down and take a break Encouraged to continue with yearly vaccinations Return to the emergency department if you develop sudden shortness of breath, chest pain, nausea, vomiting, upset stomach or intractable diarrhea Return to the emergency department if you develop fever greater than 101.5 Follow-up with the primary care physician within 1-2 weeks Follow-up with Dr. Trejo of urology in 3-4 weeks for repeat Scrotal Ultrasound Thank you for [facility] for your healthcare needs Patient Instructions: Antibiotic Form Patient Language: Burkinan Stand Alone Forms: General Discharge Information Follow-up/Referrals: Onofre Martin MD [Primary Care Provider, Family Practice] Mehul Nelson MD [Physician, Urology] Discharge Medications: New ciprofloxacin HCl 500 mg Tablet 500 mg PO Q12HR Qty: 20 0RF Continued Farxiga 10 mg tablet 10 mg PO DAILY Qty: 90 3RF metformin 500 mg tablet extended release 24 hr 500 mg PO BID Qty: 360 1RF atorvastatin [Lipitor] 20 mg tablet 20 mg PO DAILY Qty: 90 3RF Mounjaro 7.5 mg/0.5 mL pen injector 7.5 mg subcut WEEKLY Qty: 6 1RF tadalafil [Cialis] 5 mg tablet 5 mg PO DAILY Qty: 30 5RF insulin glargine [Lantus Solostar U-100 Insulin] 100 unit/mL (3 mL) insulin pen See Rx Instructions .ROUTE .COMPLEX Qty: 21 0RF Dose Instruction: INJECT 26 UNITS SUBCUTANEOUSLY ONCE DAILY Rx Instructions: INJECT 30 UNITS SUBCUTANEOUSLY ONCE DAILY No Action (DME) pen needle, diabetic 32 gauge x 5/32 needle See Rx Instructions .ROUTE .MEDSUPPLY Qty: 100 2RF Rx Instructions: inject daily Date of admission: 03/07/25 21:27 Primary Care Provider: Onofre Martin Admitting Provider: Amanda Galan Attending physician on admission: Amanda Galan Condition: Stable Quality VTE Prophylaxis VTE prophylaxis: mechanical ordered
--- NOTE | 2025-03-15 08:03 | PC.NURSE ---
Blood cx show no growth. KAYE Cantrell aware.
== END 2025-03-08 13:00 | disposition home or self-care (01) ==
LOC: ANHED 19:18 → ANH3MEDSUR 22:55
PROVIDERS: Nurse Practitioner; Physician Assistant; Admitting Provider Internal Medicine; Emergency Provider Student in an Organized Health Care Education/Training Program; PCP Family Medicine; Visit Provider Internal Medicine
DX: N49.2 Inflammatory disorders of scrotum (principal); E11.9 Type 2 diabetes mellitus without complications; E78.5 Hyperlipidemia, unspecified; I10 Essential (primary) hypertension; N52.9 Male erectile dysfunction, unspecified; Z87.891 Personal history of nicotine dependence; Z79.4 Long term (current) use of insulin; Z79.84 Long term (current) use of oral hypoglycemic drugs; Z79.85 Long-term (current) use of injectable non-insulin antidiabetic drugs
CPT/HCPCS: 55100; 36415; 72193; 80053; 81001; 82565; 82948; 83036; 83690; 85025; 85652; 86140; 96365; 96367; 99285; A9270; G0378; J2003; J2543; J3373; J7050; Q9967